=== PATIENT | female | born 1980 | race Caucasian/White ===

== ENCOUNTER → 2017-10-16 | Outpatient (CLI) | payer OTHER ==
--- NOTE | 2017-10-16 16:28 | US ---
EXAMINATION TYPE: US pelvic complete DATE OF EXAM: 10/16/2017 COMPARISON: NONE CLINICAL HISTORY: N93.8 Dysfunctional Uterine Bleed,R10.2 Pelvic Pain. Patient stated has heavy mense s x 1 year; TECHNIQUE: Transabdominal (TA) only as patient unable to void at all with overly distended bladder. Date of LMP: 10/02/2017 EXAM MEASUREMENTS: Uterus: 7.9 x 5.1 x 3.9 cm Endometrial Stripe: 0.8 cm Right Ovary: 3.3 x 2.4 x 2.8 cm Left Ovary: 2.2 x 2.2 x 1.8 cm Urinary bladder is sonolucent. Posterior wall is normal. 1. Uterus: Anteverted 2. Endometrium: thickness wnl for Day 15 LMP 3. Right Ovary: small follicles with largest = 1.1 x 1.1 x 1.0cm 4. Left Ovary: small follicles Color flow is seen in bilateral ovary at periphery 5. Bilateral Adnexa: wnl 6. Posterior cul-de-sac: wnl IMPRESSION: 1. Small 1 cm cyst right ovary. 2. Pelvic ultrasound is otherwise unremarkable.
== END | disposition home or self-care (01) ==
LOC: RADUSWWP 15:33
PROVIDERS: ATTEND Obstetrics & Gynecology
DX: N83.201 Unspecified ovarian cyst, right side (principal)
CPT/HCPCS: 36415; 76856; 83001; 83002; 84146; 84443

== ENCOUNTER → 2017-11-27 | Outpatient (CLI) | payer OTHER | END | disposition home or self-care (01) | LOC: LABWHC1 12:42 | PROVIDERS: ATTEND Obstetrics & Gynecology | DX: N93.8 Other specified abnormal uterine and vaginal bleeding (principal) | CPT/HCPCS: 36415; 83001; 83002; 84146; 84443 ==

== ENCOUNTER 2017-12-06 06:14 | Day surgery (SDC) | payer OTHER ==
[2017-11-29 15:22] VITALS: BMI 37.4
--- NOTE | 2017-12-05 15:39 | P.HPOB ---
History of Present Illness H&P Date: 12/05/17 Chief Complaint: Menorrhagia and family planning Janice is a 37-year-old female who has very heavy vaginal bleeding with each cycle despite being on control pills. She was interested in an ablation procedure to try and alleviate her symptoms. Risks and benefits were discussed the patient in detail including but not limited to damage to bladder, nerves, vessels, injuries from thermal damage from the ablation as well as pain issues. We are scheduling her for a left scopic tubal occlusion at the same time for family planning as NovaSure is not a form of control. We did previously discuss alternatives including IUDs and changing control but she is not interested in those at this time and would prefer to move forward with more definitive treatment. Past Medical History Past Medical History: No Reported History Additional Past Medical History / Comment(s): Menorrhagia History of Any Multi-Drug Resistant Organisms: None Reported Past Surgical History: Orthopedic Surgery Additional Past Surgical History / Comment(s): ostiotomy bilateral legs, scopes on knees, removal of right clavical, removal of cyst right wrist Past Anesthesia/Blood Transfusion Reactions: No Reported Reaction Smoking Status: Never smoker - Past Family History Father Family Medical History: Hypertension Medications and Allergies Home Medications Medication Instructions Recorded Confirmed Type Ibuprofen [Motrin] 600 mg PO Q6HR PRN #30 tab 03/19/15 11/29/17 Rx Venlafaxine HCl [Effexor] 50 mg PO DAILY 11/29/17 11/29/17 History traMADol HCl [Ultram] 50 mg PO Q6HR PRN 11/29/17 11/29/17 History Allergies Allergy/AdvReac Type Severity Reaction Status Date / Time Sulfa (Sulfonamide Allergy Unknown Verified 11/29/17 15:12 Antibiotics) Childhood Exam Osteopathic Statement: *. No significant issues noted on an osteopathic structural exam other than those noted in the History and Physical/Consult. - OBG Physical Exam Breast: both: normal (no masses) Abdomen: bowel sounds normal, no diffuse tenderness, no bruit present, no guarding noted, no hepatomegaly, no splenomegaly, no mass Vulva: both: normal Vagina: normal moisture, no discharge Cervix: no lesion, no discharge Uterus: normal size, normal contour Adnexa: both: normal Anus/Rectum: normal perianal skin, no rectal mass, no hemorrhoids, heme negative
[~2017-12-06 06:14] MED LIST: DEXAMETHASONE SOD PHOSPHATE 10 MG/ML 1 ML VIAL IV ONE; LACTATED RINGERS 1,000 ML IV SCH; MIDAZOLAM 2 MG/2 ML VIAL IV PRN; ONDANSETRON 4 MG/2 ML VIAL IVP ONE; Pre Op ABX Message 1 EACH MISC MISCELLANE ONE
[2017-12-06] MEDS ORDERED: LIDOCAINE 1% 20 ML VIAL (10MG/ML) FOR IV START INTRADERMA ONE (06:42)
[2017-12-06 06:57] LABS: HCT 43.3 % (34.0-46.0); HGB 14.7 gm/dL (11.4-16.0); MCH 30.1 pg (25.0-35.0); MCV 88.3 fL (80.0-100.0); Mean Platelet Volume 7.8; Platelet Count 243 k/uL (150-450); RDW 13.6 % (11.5-15.5); WBC 8.2 k/uL (3.8-10.6)
[2017-12-06] MEDS ORDERED: BUPIVACAINE (PF) 0.5% 30 ML VIAL SQ ONE ×2 (07:34→08:05)
[2017-12-06] MEDS ORDERED: LIDOCAINE 1% INJ 10MG/ML (20 ML MDV) ONE (07:45)
[2017-12-06] MEDS ORDERED: PROPOFOL 10 MG/ML 20 ML VIAL IV ONE (07:45)
[2017-12-06] MEDS ORDERED: KETOROLAC 30 MG/ML 1 ML VIAL ONE (07:45)
[2017-12-06] MEDS ORDERED: NEOSTIGMINE 1 MG/ML 10 ML VIAL ONE (07:45)
[2017-12-06] MEDS ORDERED: fentaNYL (PF) 50 MCG/ML 2 ML AMP ONE (07:45)
[2017-12-06] MEDS ORDERED: MIDAZOLAM 2 MG/2 ML VIAL ONE (07:45)
[2017-12-06] MEDS ORDERED: ROCURONIUM BROMIDE 10 MG/ML 10 ML VIAL IV ONE (07:45)
[2017-12-06] MEDS ORDERED: GLYCOPYRROLATE 0.2 MG/ML 2 ML VIAL ONE (07:45)
[2017-12-06] MEDS ORDERED: SUCCINYLCHOLINE CHLORIDE 100 MG/5 ML SYR IV ONE (07:45)
--- NOTE | 2017-12-06 08:32 | P.OP ---
Date of Procedure: 12/06/17 Preoperative Diagnosis: Menorrhagia and family planning Postoperative Diagnosis: Same Procedure(s) Performed: Laparoscopic tubal occlusion with Filshie clips and D&C with hysteroscopy and NovaSure Anesthesia: DAISHA Surgeon: Lee Castle Estimated Blood Loss (ml): 10 Urine output (ml): 100 Pathology: other (Uterine curettings) Condition: stable Disposition: same day Operative Findings: Normal pelvic anatomy Description of Procedure: Patient was taken to the operative suite where a general anesthetic was found be adequate. She was prepped and draped in normal sterile fashion and placed in dorsal lithotomy position. Initially a speculum was inserted into the vagina and the anterior lip of the cervix identified and grasped with an Allis clamp. Cervix was then dilated and sounded to 10 cm. Once this was accomplished manipulator was inserted without difficulty and red rubber catheter drain the bladder of urine. Incidents were then removed from the vagina and closer changed. Attention was then turned to the abdominal portion of the procedure where 3 mL of quarter percent Marcaine was injected periumbilically. Through this injected anesthetic a 5 mm skin incision was made and through this incision under direct visualization with an optical trocar and sleeve the camera was inserted. Once peritoneal placement was assured gas allowed to fully insufflate the abdomen and patient was then placed in steep Trendelenburg position. A second 8 mm skin incision was then made 3 cm above the pubic symphysis in the midline and 8 mm port and sleeve were inserted again under direct visualization through this opening. Observations pelvis were then noted uterus was elevated first the right fallopian tube than left fallopian tube was occluded with Filshie clips 2 cm from uterine cornu. No bleeding is noted from the mesosalpinx therefore instruments were removed and gas was allowed to expel from the abdomen. 5 deep breaths were provided during this process. 4-0 Vicryl was then used to close incision subcuticularly and the remaining 7 mL of quarter percent Marcaine was injected around the incisions. Once this was accomplished attention was again turned to the vagina where the speculum was replaced and manipulator was removed. Hysteroscopy was then done following grasping of the cervix with a single-tooth tenaculum. Proliferative endometrium was noted. Camera was then removed and sharp curettings of the endometrium were obtained and placed on Telfa paper. This tissue was sent to pathology for evaluation. Once concluded NovaSure system was brought in with a length of 5 and a width of 2.5 it was tested and once it passes patency test it was enabled and then did burned for 70 seconds. At conclusion of the burn instruments and NovaSure removed camera was reinserted with good burn noted. Therefore all instruments are removed sponge, lap, needle counts were all correct 2. Patient was then taken to the recovery room in stable and satisfactory condition. Plan - Discharge Summary New Discharge Prescriptions: New HYDROcodone/APAP 5-325MG [[place] 5-325] 1 tab PO Q4HR PRN 3 Days #18 tab PRN Reason: Pain Ibuprofen [Motrin] 600 mg PO Q6HR PRN #30 tab PRN Reason: Pain No Action Ibuprofen [Motrin] 600 mg PO Q6HR PRN #30 tab PRN Reason: Pain traMADol HCl [Ultram] 50 mg PO Q6HR PRN PRN Reason: Pain Venlafaxine HCl [Effexor] 50 mg PO DAILY Discharge Medication List Ibuprofen [Motrin] 600 mg PO Q6HR PRN #30 tab 03/19/15 [Rx] Venlafaxine HCl [Effexor] 50 mg PO DAILY 11/29/17 [History] traMADol HCl [Ultram] 50 mg PO Q6HR PRN 11/29/17 [History] HYDROcodone/APAP 5-325MG [[place] 5-325] 1 tab PO Q4HR PRN 3 Days #18 tab [Rx] Ibuprofen [Motrin] 600 mg PO Q6HR PRN #30 tab 12/06/17 [Rx] Follow up Appointment(s)/Referral(s): Lee Castle DO [Doctor of Osteopathic Medicine] - 2 Weeks Activity/Diet/Wound Care/Special Instructions: No heavy lifting today, limit stairs and driving and pelvic rest. If any high temperatures, heavy bleeding, or severe pain call my office
[2017-12-06] MEDS: fentaNYL (PF) 50 MCG/ML 2 ML AMP IVP ONE ×2 (08:44→08:51)
[2017-12-06 08:51] VITALS: TEMP 97.4
[2017-12-06] MEDS: HYDROmorphone 0.5 MG/0.5 ML SYRINGE IVP PRN ×2 (09:07→09:21)
[2017-12-06 09:38] VITALS: RESP 16
[2017-12-06] MEDS ORDERED: HYDROcodone/APAP 5-325MG 1 EACH TAB PO ONE (09:57)
[2017-12-06 10:58] VITALS: BP 113/76; PULSE 63
== END 2017-12-06 11:31 | disposition home or self-care (01) ==
LOC: OR 06:14
PROVIDERS: ATTEND Obstetrics & Gynecology
DX: Z30.2 Encounter for sterilization (principal); N92.0 Excessive and frequent menstruation with regular cycle; F32.9 Major depressive disorder, single episode, unspecified; Z88.2 Allergy status to sulfonamides; Z79.899 Other long term (current) drug therapy; Z82.49 Family history of ischemic heart disease and other diseases of the circulatory system
CPT/HCPCS: 81025; 88305; 85027; 58670; 58558; J2001; J2250; J2710; J3010; J1885; J0330; J2704; J1170

== ENCOUNTER → 2019-12-18 | Outpatient (CLI) | payer OTHER ==
--- NOTE | 2019-12-18 15:13 | US ---
EXAMINATION TYPE: US pelvic complete DATE OF EXAM: 12/18/2019 COMPARISON: US 2018 CLINICAL HISTORY: R10.2 pelvic pain. Irregular cycles, heavy periods, intermittent pelvic cramping, g ravida 4, para 3, ectopic 1, history of tubal ligation and uterine ablation. TECHNIQUE: Transabdominal sonographic images of the pelvis were acquired. Date of LMP: 09/18/2019 EXAM MEASUREMENTS: Uterus: 9.3 x 4.7 x 5.6 cm Endometrial Stripe: 0.7 cm Right Ovary: 2.6 x 1.8 x 2.7 cm Left Ovary: 3.0 x 2.0 x 2.7 cm 1. Uterus: anteverted 2. Endometrium: appears wnl 3. Right Ovary: wnl 4. Left Ovary: wnl 5. Bilateral Adnexa: wnl 6. Posterior cul-de-sac: wnl IMPRESSION: Unremarkable pelvic ultrasound. Endometrial thickness is within normal limits measuring 0 .7 cm.
== END | disposition home or self-care (01) ==
LOC: MERGE 13:40 → RADUSWWP 14:38
PROVIDERS: ATTEND Obstetrics & Gynecology
DX: R10.2 Pelvic and perineal pain (principal)
CPT/HCPCS: 76856

== ENCOUNTER → 2020-01-27 | Outpatient (CLI) | payer OTHER ==
[2020-01-27 10:54] LABS: Basophils # (A) 0.1 k/uL (0-0.2); Basophils % (A) 1 %; Eosinophils # (A) 0.1 k/uL (0-0.7); Eosinophils % (A) 2 %; HCT 47.8 % (34.0-46.0); HGB 15.4 gm/dL (11.4-16.0); Lymphocytes # (A) 1.9 k/uL (1.0-4.8); Lymphocytes % (A) 26 %; MCH 30.2 pg (25.0-35.0); MCHC 32.3 g/dL (31.0-37.0); MCV 93.5 fL (80.0-100.0); Mean Platelet Volume 9.1; Monocytes # (A) 0.3 k/uL (0-1.0); Monocytes % (A) 5 %; Neutrophils # (A) 4.7 k/uL (1.3-7.7); Neutrophils % (A) 64 %; Platelet Count 275 k/uL (150-450); RBC 5.11 m/uL (3.80-5.40); RDW 13.3 % (11.5-15.5); WBC 7.4 k/uL (3.8-10.6)
[2020-01-27 11:00] LABS: African American GFR (CKD) >90 (>60 ml/min/1.73 sqM); Anion Gap 8 mmol/L; Blood Urea Nitrogen 12 mg/dL (7-17); Calcium 9.8 mg/dL (8.4-10.2); Carbon Dioxide 21 mmol/L (22-30); Chloride 108 mmol/L (98-107); Glucose 96 mg/dL (74-99); Non-African American GFR(CKD) >90 (>60 ml/min/1.73 sqM); Potassium 4.8 mmol/L (3.5-5.1); Sodium 137 mmol/L (137-145)
== END | disposition home or self-care (01) ==
LOC: LABPAT 10:12
PROVIDERS: ATTEND Obstetrics & Gynecology
DX: Z01.818 Encounter for other preprocedural examination (principal)
CPT/HCPCS: 36415; 80048; 85025

== ENCOUNTER 2020-02-05 08:02 | Day surgery (SDC) | payer OTHER ==
[2020-01-30 15:55] VITALS: BMI 38.9
--- NOTE | 2020-02-04 16:41 | P.HPOB ---
History of Present Illness H&P Date: 02/04/20 Chief Complaint: Dysfunctional uterine bleeding: Failed NovaSure Janice is a 40-year-old female who has had very heavy menses lasting for 3 days each cycle. She also has severe pain and cramping with her cycles as well. She does have some hot flashes as a incidental notation. She is scheduled for a robotic-assisted laparoscopic hysterectomy with bilateral salpingectomy possible PHAM and possible BSO. Risks/benefits/alternatives were reviewed with patient in detail all questions were answered for her prior to proceeding to the operative room. Risks did include but were not limited to bleeding and infection, damage to bladder, bowel, vascular degrees, nerve injuries, ureteral injuries possible anesthetic issues. Surgical procedure were reviewed with the patient in detail and she understands what is entailed and all questions are answered for her prior to proceeding to the operative room. Past Medical History Past Medical History: Asthma, Osteoarthritis (OA) Additional Past Medical History / Comment(s): Stress Induced Asthma. History of Any Multi-Drug Resistant Organisms: None Reported Past Surgical History: Orthopedic Surgery, Tubal Ligation Additional Past Surgical History / Comment(s): Ostiotomy bilateral legs, bilateral knee scopes, removal of right clavical, removal of right wrist cyst, Novasure. Past Anesthesia/Blood Transfusion Reactions: No Reported Reaction Past Psychological History: No Psychological Hx Reported Smoking Status: Never smoker Past Alcohol Use History: Rare Past Drug Use History: None Reported - Past Family History Father Family Medical History: Hypertension Medications and Allergies Home Medications Medication Instructions Recorded Confirmed Type Acetaminophen [Tylenol Extra 1,000 mg PO Q4-6H PRN 01/30/20 01/30/20 History Strength] Budesonide/Formoterol Fumarate 1 puff INHALATION DIRECTED PRN 01/30/20 01/30/20 History [Symbicort 80-4.5 Mcg Inhaler] Ibuprofen [Motrin] 800 mg PO DAILY PRN 01/30/20 01/30/20 History Allergies Allergy/AdvReac Type Severity Reaction Status Date / Time Sulfa (Sulfonamide Allergy Unknown Verified 01/30/20 15:56 Antibiotics) Childhood Exam Osteopathic Statement: *. No significant issues noted on an osteopathic s tructural exam other than those noted in the History and Physical/Consult. - OBG Physical Exam Breast: both: normal (no masses) Abdomen: Obese Abdomen: bowel sounds normal, no diffuse tenderness, no bruit present, no guarding noted, no hepatomegaly, no splenomegaly, no mass Vulva: both: normal Vagina: normal moisture, no discharge Cervix: no lesion, no discharge Uterus: normal size, normal contour Adnexa: both: normal Anus/Rectum: normal perianal skin, no rectal mass, no hemorrhoids, heme negative
[~2020-02-05 08:02] MED LIST changes: -DEXAMETHASONE SOD PHOSPHATE 10 MG/ML 1 ML VIAL IV ONE; -MIDAZOLAM 2 MG/2 ML VIAL IV PRN
[2020-02-05] MEDS ORDERED: ONDANSETRON 4 MG/2 ML VIAL ONE (08:33)
[2020-02-05] MEDS ORDERED: DEXAMETHASONE SOD PHOSPHATE 10 MG/ML 1 ML VIAL IV ONE (08:45)
[2020-02-05] MEDS ORDERED: LIDOCAINE 1% (10MG/ML) FOR IV START INTRADERMA ONE (08:45)
[2020-02-05] MEDS ORDERED: MIDAZOLAM 2 MG/2 ML VIAL IV ONE (09:20)
[2020-02-05] MEDS ORDERED: GLYCOPYRROLATE 0.2 MG/ML 2 ML VIAL ONE (09:31)
[2020-02-05] MEDS ORDERED: LIDOCAINE 1% INJ 10MG/ML (20 ML MDV) ONE (09:31)
[2020-02-05] MEDS ORDERED: NEOSTIGMINE 1 MG/ML 10 ML VIAL ONE (09:31)
[2020-02-05] MEDS ORDERED: ROCURONIUM BROMIDE 10 MG/ML 5 ML VIAL IV ONE (09:31)
[2020-02-05] MEDS ORDERED: HYDROmorphone (PF) 1 MG/ML ONE (09:31)
[2020-02-05] MEDS ORDERED: SUCCINYLCHOLINE CHLORIDE 100 MG/5 ML SYR IV ONE (09:31)
[2020-02-05] MEDS ORDERED: fentaNYL (PF) 50 MCG/ML 2 ML AMP ONE (09:31)
[2020-02-05] MEDS ORDERED: MIDAZOLAM 2 MG/2 ML VIAL ONE (09:31)
[2020-02-05] MEDS ORDERED: PROPOFOL 10 MG/ML 20 ML VIAL IV ONE (09:31)
[2020-02-05] MEDS ORDERED: ceFAZolin 1,000 MG VIAL IVPB ONE (09:39)
[2020-02-05] MEDS ORDERED: BUPIVACAINE (PF) 0.25% 30 ML VIAL SQ ONE ×2 (09:57)
[2020-02-05] MEDS ORDERED: ONDANSETRON 4 MG/2 ML VIAL IVP PRN (10:49)
[2020-02-05] MEDS ORDERED: KETOROLAC 30 MG/ML 1 ML VIAL IVP PRN (10:49)
[2020-02-05] MEDS ORDERED: SIMETHICONE 80 MG CHEWABLE PO PRN (10:49)
[2020-02-05] MEDS ORDERED: SYMBICORT 80-4.5 MCG INHALER INHALATION PRN (10:50)
--- NOTE | 2020-02-05 10:55 | P.OP ---
Date of Procedure: 02/05/20 Preoperative Diagnosis: Dysfunctional uterine bleeding failed NovaSure Postoperative Diagnosis: Same Procedure(s) Performed: Robotic-assisted laparoscopic hysterectomy with bilateral salpingectomy Anesthesia: DAISHA Surgeon: Lee Castle [employer] Stripper Etcher #1: Christa Marrufo Estimated Blood Loss (ml): 30 IV fluids (ml): 800 Urine output (ml): 100 Pathology: other (Uterus, cervix and fallopian tubes) Condition: stable Disposition: floor Operative Findings: Tissue pathology pending Description of Procedure: Janice was taken to the operating suite where general anesthetic was found be adequate. She was prepped and draped in the normal sterile fashion placed in dorsal lithotomy position. Initially a weighted speculum was inserted into the vagina and the anterior lip surface identified grasped with single-tooth tenaculum. It was then sounded to 9 cm and cup sizes measured to 3 cm. Cervix was then dilated and a Alis manipulator was inserted without difficulty. Other incidents were then removed with sutures placed at 3 and 9 to help in removal. Ferro catheter was then placed closer changed. Attention was then turned to abdominal portion procedure where 2 mL of quarter percent Marcaine was injected around the periumbilical area and an 8 mm skin incision was made. Through this incision under direct visualization with an optical trocar and sleeve the camera was inserted. Once peritoneal placement was assured gas was left fully insufflate the abdomen and patient was placed in steep Trendelenburg position of approximately 25. Once this was accomplished 2 lateral ports were placed 10-12 cm lateral to the umbilicus through these incisions 8 mm da Alyssa ports were placed. Fourth port and sleeve was inserted through a 1 cm incision between the left lateral and medial port. Camera port was exchanged for a robotic port and the robot was brought in and docked. Once fully docked scissor was placed in the 3 arm and a [place] grasper in the one arm. At this point broke scrub and went to the console. Observations [place] noted. Uterus was then elevated and tipped to the right side and the left fallopian tube was undermined cauterized and removed. Once this was accomplished utero-ovarian ligament was identified cauterized and transected and the mesosalpinx tissues cauterized and transected the round ligament. Round ligament was then transferred cauterized and transected and anterior and posterior leafs broad ligament were developed. Vascular was then cauterized and the bladder flap identified. At the level of the cardinal ligament bladder flap was elevated incised with scissor and carried across face the uterus while undermining with [place] and incised with the scissors. Bladder was then bluntly dissected out of the operative field. Once this was accomplished attention was turned to the right side of the uterus and in a similar fashion this side was developed. Cauterization of the uterine vascularity was then verified. Cup was blown up in the Alis manipulator and anterior colpotomy was made. Cup was then followed as 360 fashion in a counterclockwise fashion maintaining hemostasis by cheating head when necessary. Once 3 and 60 was accomplished uterus was brought down into the vagina to maintain pneumoperitoneum. No bleeding is noted from any of the pedicles therefore incidents were exchanged for a make suture cut and a cardia grasper and using to OB lock suture the vaginal cuff was closed. Once this was, as pelvis was irrigated no bleeding is noted from any of the pedicles hemostasis appears intact and therefore Allis was removed and gas was allowed to expel from the abdomen. 5 deep breaths were provided during this process. Dr. Marrufo close incisions was 4-0 Vicryl subcuticular E I did do a diagnostic cystoscopy with excellent flow noted from both ureteral jets. The remaining Marcaine was then injected around the incisions. Sponge, lap, needle counts were all correct 2. Patient was then taken to the recovery room in stable and satisfactory condition.
[2020-02-05] MEDS ORDERED: KETOROLAC 30 MG/ML 1 ML VIAL IVP ONE (11:05)
[2020-02-05] MEDS ORDERED: diphenhydrAMINE 50 MG/ML 1 ML VIAL IVP ONE (11:07)
[2020-02-05] MEDS: fentaNYL (PF) 50 MCG/ML 2 ML AMP IV PRN ×3 (11:25→11:57)
[2020-02-05] MEDS: HYDROcodone/APAP 7.5-325MG 1 EACH TAB PO PRN ×2 (14:31→20:21)
[2020-02-05] MEDS: SENNOSIDES-DOCUSATE SODIUM 1 EACH TAB PO SCH (23:36)
[2020-02-05 23:37] VITALS: RESP 16
[2020-02-06] MEDS: HYDROcodone/APAP 7.5-325MG 1 EACH TAB PO PRN ×2 (03:01→08:57)
[2020-02-06 07:53] LABS: Basophils % (A) 0 %; Eosinophils % (A) 0 %; HGB 13.1 gm/dL (11.4-16.0); Lymphocytes # (A) 2.2 k/uL (1.0-4.8); Lymphocytes % (A) 19 %; MCH 29.9 pg (25.0-35.0); MCHC 31.9 g/dL (31.0-37.0); MCV 93.9 fL (80.0-100.0); Mean Platelet Volume 9.1; Monocytes # (A) 0.6 k/uL (0-1.0); Monocytes % (A) 5 %; Neutrophils # (A) 8.4 k/uL (1.3-7.7); Neutrophils % (A) 74 %; Platelet Count 216 k/uL (150-450); RBC 4.36 m/uL (3.80-5.40); RDW 13.2 % (11.5-15.5); WBC 11.4 k/uL (3.8-10.6)
[2020-02-06] MEDS: SENNOSIDES-DOCUSATE SODIUM 1 EACH TAB PO SCH (08:56)
[2020-02-06 09:19] VITALS: BP 127/85; PULSE 77; TEMP 97.7
== END 2020-02-06 10:40 | disposition home or self-care (01) ==
LOC: OR 08:02 → 4FBP 11:21 → OR 02-06 10:40
PROVIDERS: ATTEND Obstetrics & Gynecology
DX: N72 Inflammatory disease of cervix uteri (principal); N80.0 Endometriosis of uterus; D25.9 Leiomyoma of uterus, unspecified; J45.909 Unspecified asthma, uncomplicated; M19.90 Unspecified osteoarthritis, unspecified site; Z98.51 Tubal ligation status; Z98.890 Other specified postprocedural states; Z82.49 Family history of ischemic heart disease and other diseases of the circulatory system; Z79.51 Long term (current) use of inhaled steroids; Z79.899 Other long term (current) drug therapy; Z88.2 Allergy status to sulfonamides
CPT/HCPCS: 58571; S2900; 81025; 85025; 86850; 86900; 86901; 88307

== ENCOUNTER 2020-02-16 11:53 | Observation (INO) | payer OTHER ==
[2020-02-16] MEDS ORDERED: SODIUM CHLORIDE 0.9% 1,000 ML IV STA (12:17)
--- NOTE | 2020-02-16 12:25 | ED ---
Female Urogenital HPI - General Chief complaint: Vaginal Bleeding Stated complaint: Vaginal Bleeding Time Seen by Provider: 02/16/20 12:11 Source: patient, EMS, RN notes reviewed, old records reviewed Mode of arrival: EMS Limitations: no limitations - History of Present Illness Initial comments: This is a 32-year-old female DF for evaluation today. She presents today for evaluation regards to significant vaginal bleeding starting while at work this m orning. Patient had hysterectomy on the and had normal follow-up appointment at a week. No pain or bleeding started heavily today maybe some feelings of lightheadedness but she does feel shaky and thinks it may be more anxiety secondary to significance of the bleeding. She did not feel any d ifferent symptoms besides what is noting the significant amount of blood. Patient robotic hysterectomy and they did take the uterus through her vaginal canal. Patient denies any sexual activity. MD Complaint: vaginal bleeding, other (No pain) -: hour(s) Location: perineum Radiation: non-radiating Severity: severe Severity scale (1-10): 10 Quality: other (No pain) Consistency: constant Improves with: none Worsens with: none Patient : No Associated Symptoms: vaginal bleeding, weakness - Related Data Sexually active: No (Not currently) Home Medications Medication Instructions Recorded Confirmed Acetaminophen [Tylenol Extra 1,000 mg PO Q4-6H PRN 01/30/20 02/05/20 Strength] Budesonide/Formoterol Fumarate 1 puff INHALATION DIRECTED PRN 01/30/20 02/05/20 [Symbicort 80-4.5 Mcg Inhaler] Ibuprofen [Motrin] 800 mg PO DAILY PRN 01/30/20 02/05/20 Previous Rx's Medication Instructions Recorded HYDROcodone/APAP 5-325MG [[place] 1 tab PO Q4HR PRN #30 tab 02/06/20 5-325] Ibuprofen [Motrin] 600 mg PO Q6HR PRN #30 tab 02/06/20 Allergies Allergy/AdvReac Type Severity Reaction Status Date / Time Sulfa (Sulfonamide Allergy Unknown Verified 02/05/20 08:17 Antibiotics) Childhood Review of Systems ROS Statement: Those systems with pertinent positive or pertinent negative responses have been documented in the HPI. ROS Other: All systems not noted in ROS Statement are negative. Past Medical History Past Medical History: No Reported History History of Any Multi-Drug Resistant Organisms: None Reported Past Surgical History: Hysterectomy Additional Past Surgical History / Comment(s): ostiotomy bilateral legs, scopes on knees, removal or right clavical, removal of cyst right wrist, hysterectomy with tubes removed 02/05/20 Past Anesthesia/Blood Transfusion Reactions: No Reported Reaction Past Psychological History: No Psychological Hx Reported Smoking Status: Never smoker Past Alcohol Use History: None Reported Past Drug Use History: None Reported - Past Family History Father Family Medical History: Hypertension General Exam Limitations: no limitations General appearance: alert, in no apparent distress, anxious Head exam: Present: atraumatic, normocephalic, normal inspection Eye exam: Present: normal appearance, PERRL, EOMI. Absent: scleral icterus, conjunctival injection, periorbital swelling ENT exam: Present: normal exam, mucous membranes moist Neck exam: Present: normal inspection. Absent: tenderness, meningismus, lymphadenopathy Respiratory exam: Present: normal lung sounds bilaterally. Absent: respiratory distress, wheezes, rales, rhonchi, stridor Cardiovascular Exam: Present: regular rate, normal rhythm, normal heart sounds. Absent: systolic murmur, diastolic murmur, rubs, gallop, clicks GI/Abdominal exam: Present: soft, normal bowel sounds. Absent: distended, tenderness, guarding, rebound, rigid Extremities exam: Present: normal inspection, full ROM, normal capillary refill. Absent: tenderness, pedal edema, joint swelling, calf tenderness Back exam: Present: normal inspection Neurological exam: Present: alert, oriented X3, CN II-XII intact Psychiatric exam: Present: normal affect, normal mood Skin exam: Present: warm, dry, intact, normal color. Absent: rash Course Vital Signs 02/16/20 02/16/20 11:59 12:31 Temperature 98.7 F Pulse Rate 76 103 H Respiratory 18 18 Rate Blood Pressure 148/99 134/91 O2 Sat by Pulse 100 100 Oximetry - Reevaluation(s) Reevaluation #1: 02/16/20 12:25 Medical record is reviewed Reevaluation #2: 02/16/20 12:55 Patient continues to have significant bleeding - Consultations Consultation #1: Spoke with Dr. Bo Soriano did come evaluate patient in the emergency room for Dr. Castle, patient will be going to the operating room Medical Decision Making - Medical Decision Making 40 female DF for evaluation with significant postoperative bleeding. Patient be admitted to the operating room for reevaluation regarding postop bleeding - Lab Data Result diagrams: 02/16/20 12:10 Lab Results 02/16/20 Range/Units 12:10 WBC 12.9 H (3.8-10.6) k/uL RBC 4.55 (3.80-5.40) m/uL Hgb 13.8 (11.4-16.0) gm/dL Hct 42.0 (34.0-46.0) % MCV 92.4 (80.0-100.0) fL MCH 30.3 (25.0-35.0) pg MCHC 32.8 (31.0-37.0) g/dL RDW 13.2 (11.5-15.5) % Plt Count 244 (150-450) k/uL Neutrophils % 79 % Lymphocytes % 14 % Monocytes % 4 % Eosinophils % 1 % Basophils % 1 % Neutrophils # 10.2 H (1.3-7.7) k/uL Lymphocytes # 1.8 (1.0-4.8) k/uL Monocytes # 0.5 (0-1.0) k/uL Eosinophils # 0.1 (0-0.7) k/uL Basophils # 0.1 (0-0.2) k/uL Disposition Clinical Impression: Vaginal bleeding Disposition: ADMITTED IP TO THIS HOSP Condition: Serious Is patient prescribed a controlled substance at d/c from ED?: No Referrals: Roxana Sarah MD [Primary Care Provider] - 1-2 days
[2020-02-16 12:48] LABS: Basophils # (A) 0.1 k/uL (0-0.2); Basophils % (A) 1 %; Eosinophils # (A) 0.1 k/uL (0-0.7); Eosinophils % (A) 1 %; HGB 13.8 gm/dL (11.4-16.0); Lymphocytes # (A) 1.8 k/uL (1.0-4.8); Lymphocytes % (A) 14 %; MCH 30.3 pg (25.0-35.0); MCHC 32.8 g/dL (31.0-37.0); MCV 92.4 fL (80.0-100.0); Mean Platelet Volume 9.2; Monocytes # (A) 0.5 k/uL (0-1.0); Monocytes % (A) 4 %; Neutrophils # (A) 10.2 k/uL (1.3-7.7); Neutrophils % (A) 79 %; Platelet Count 244 k/uL (150-450); RBC 4.55 m/uL (3.80-5.40); RDW 13.2 % (11.5-15.5); WBC 12.9 k/uL (3.8-10.6)
[2020-02-16 13:01] LABS: ALT 17 U/L (4-34); AST 27 U/L (14-36); African American GFR (CKD) >90 (>60 ml/min/1.73 sqM); Albumin 3.9 g/dL (3.5-5.0); Alkaline Phosphatase 83 U/L (38-126); Anion Gap 7 mmol/L; Blood Urea Nitrogen 13 mg/dL (7-17); Calcium 8.9 mg/dL (8.4-10.2); Carbon Dioxide 18 mmol/L (22-30); Chloride 110 mmol/L (98-107); Glucose 106 mg/dL (74-99); Magnesium 1.9 mg/dL (1.6-2.3); Non-African American GFR(CKD) >90 (>60 ml/min/1.73 sqM); Potassium 4.5 mmol/L (3.5-5.1); Sodium 135 mmol/L (137-145); Total Bilirubin 0.5 mg/dL (0.2-1.3); Total Protein 6.8 g/dL (6.3-8.2)
[2020-02-16] MEDS ORDERED: ONDANSETRON 4 MG/2 ML VIAL IVP STA (13:05)
--- NOTE | 2020-02-16 13:09 | P.HPOB ---
History of Present Illness H&P Date: 02/16/20 Chief Complaint: vaginal bleeding this patient is a pleasant 40-year-old 4 para 3 female who is status post laparoscopic vaginal hysterectomy on February 04. Patient states that she went to work this morning and began bleeding profusely from the vagina bright red. Patient denies any significant bleeding immediately after the surgery. I did discuss with her primary physician Dr. Castle and there were no complications at the time of surgery as well. Patient was transported by EMS from [facility] and the EMS estimated in transit blood loss at approximately 700 mL. Review of Systems Menstruation: Reports as per HPI, Reports post hysterectomy Past Medical History Past Medical History: No Reported History History of Any Multi-Drug Resistant Organisms: None Reported Past Surgical History: Hysterectomy Additional Past Surgical History / Comment(s): ostiotomy bilateral legs, scopes on knees, removal or right clavical, removal of cyst right wrist, hysterectomy with tubes removed 02/05/20 Past Anesthesia/Blood Transfusion Reactions: No Reported Reaction Past Psychological History: No Psychological Hx Reported Smoking Status: Never smoker Past Alcohol Use History: None Reported Past Drug Use History: None Reported - Past Family History Father Family Medical History: Hypertension Medications and Allergies Home Medications Medication Instructions Recorded Confirmed Type Acetaminophen [Tylenol Extra 1,000 mg PO Q4-6H PRN 01/30/20 02/05/20 History Strength] Budesonide/Formoterol Fumarate 1 puff INHALATION DIRECTED PRN 01/30/20 02/05/20 History [Symbicort 80-4.5 Mcg Inhaler] Ibuprofen [Motrin] 800 mg PO DAILY PRN 01/30/20 02/05/20 History HYDROcodone/APAP 5-325MG [[place] 1 tab PO Q4HR PRN #30 tab 02/06/20 Rx 5-325] Ibuprofen [Motrin] 600 mg PO Q6HR PRN #30 tab 02/06/20 Rx Allergies Allergy/AdvReac Type Severity Reaction Status Date / Time Sulfa (Sulfonamide Allergy Unknown Verified 02/05/20 08:17 Antibiotics) Childhood Exam Vital Signs Temp Pulse Resp BP Pulse Ox 02/16/20 12:31 103 H 18 134/91 100 02/16/20 11:59 98.7 F 76 18 148/99 100 Intake and Output 02/15/20 02/16/20 02/16/20 22:59 06:59 14:59 Other: Weight 112.491 kg exam is limited to the pelvis. Patient is lying in stretcher she has a large amount of bright red blood and there is a clot at the vaginal opening. Results Result Diagrams: 02/16/20 12:10 02/16/20 12:10 Abnormal Lab Results - Last 24 Hours (Table) 02/16/20 02/16/20 Range/Units 12:10 12:10 WBC 12.9 H (3.8-10.6) k/uL Neutrophils # 10.2 H (1.3-7.7) k/uL Sodium 135 L (137-145) mmol/L Chloride 110 H (98-107) mmol/L Carbon Dioxide 18 L (22-30) mmol/L Glucose 106 H (74-99) mg/dL Assessment and Plan Assessment: This is a pleasant 40-year-old 4 para 3 female status post laparoscopic hysterectomy approximately week and a half ago now with profuse vaginal bleeding. Patient is having significant enough bleeding that I do not feel it is possible to evaluate or treat her in the emergency department and is best to proceed to the operating room for exam under anesthesia. I explained to the patient that this most likely is from the vaginal apex therefore we will do our best to stop this bleeding the a vaginal approach however if the bleeding continues she may need to have a laparotomy or laparoscopy. Patient understands this surgery and risks: Risks of infection, bleeding, possible injury to other structures. All the patient's questions are answered written consent obtained. (1) Vaginal bleeding Current Visit: Yes Status: Acute Code(s): N93.9 - ABNORMAL UTERINE AND VAGINAL BLEEDING, UNSPECIFIED SNOMED Code(s): 031395996
[2020-02-16 13:13] LABS: INR 0.9 (<1.2); Partial Thromboplastin Time 22.9 sec (22.0-30.0); Prothrombin Time 9.5 sec (9.0-12.0)
[2020-02-16] MEDS ORDERED: PHENYLEPHRINE-0.9% NACL SYG 1 MG/10 ML SYRINGE ONE (13:26)
[2020-02-16] MEDS ORDERED: GLYCOPYRROLATE 0.2 MG/ML 2 ML VIAL ONE (13:26)
[2020-02-16] MEDS ORDERED: SUCCINYLCHOLINE CHLORIDE 100 MG/5 ML SYR IV ONE (13:26)
[2020-02-16] MEDS ORDERED: fentaNYL (PF) 50 MCG/ML 2 ML AMP ONE (13:26)
[2020-02-16] MEDS ORDERED: ROCURONIUM BROMIDE 10 MG/ML 5 ML VIAL IV ONE (13:26)
[2020-02-16] MEDS ORDERED: NEOSTIGMINE 1 MG/ML 10 ML VIAL ONE (13:26)
[2020-02-16] MEDS ORDERED: MIDAZOLAM 2 MG/2 ML VIAL ONE (13:26)
[2020-02-16] MEDS ORDERED: LIDOCAINE 1% INJ 10MG/ML (20 ML MDV) ONE (13:26)
[2020-02-16] MEDS ORDERED: PROPOFOL 10 MG/ML 20 ML VIAL IV ONE (13:26)
[2020-02-16] MEDS ORDERED: HYDROmorphone (PF) 1 MG/ML ONE (13:26)
[2020-02-16] MEDS ORDERED: IV FLUID CONTINUATION 1,000 ML IV ONE (13:26)
[2020-02-16] MEDS ORDERED: CEFAZOLIN IV ONE ×2 (13:34)
[2020-02-16] MEDS ORDERED: SODIUM CHLORIDE 0.9% IV ONE ×2 (13:34)
[2020-02-16] MEDS ORDERED: BUPIVACAINE (PF) 0.5% 30 ML VIAL SQ ONE (14:02)
[2020-02-16] MEDS ORDERED: LACTATED RINGERS 1,000 ML IV ONE (14:10)
[2020-02-16] MEDS ORDERED: BACITRACIN ZINC 500 UNIT/GM OINT 28.4 GM TUBE TOPICAL ONE (14:19)
[2020-02-16] MEDS ORDERED: SIMETHICONE 80 MG CHEWABLE PO PRN (14:21)
[2020-02-16] MEDS ORDERED: ONDANSETRON 4 MG/2 ML VIAL IVP PRN (14:21)
--- NOTE | 2020-02-16 14:27 | P.OP ---
Date of Procedure: 02/16/20 Preoperative Diagnosis: Vaginal bleeding postoperatively Postoperative Diagnosis: Same with vaginal cuff avulsion Procedure(s) Performed: Exam under anesthesia with oversew vaginal cuff and diagnostic laparoscopy Anesthesia: DAISHA Surgeon: Lee Castle Open Tenter Operator #1: Alexey Soriano Estimated Blood Loss (ml): 20 IV fluids (ml): 1,200 Urine output (ml): 100 Pathology: none sent Condition: stable Disposition: floor Operative Findings: Diagnostic laparoscopy done out of abundance of caution no active bleeding is noted in the abdomen no blood is noted in the abdomen at all. Description of Procedure: Patient was taken to the operative suite where a general anesthetic was found be adequate. She was prepped and draped in normal sterile fashion and placed in the dorsal lithotomy position. Initially a speculum was inserted into the vagina and a red rubber catheter was used to drain the bladder of urine once this was accomplished second retractor was used to we could fully visualize the vaginal cuff the right corner of the vaginal cuff appeared to be a. Heart and the remainder of the cuff looked intact due to that finding and the fact that there was a small amount of bright red bleeding coming from that area 0 Vicryl suture in a running fashion was used to reapproximate Area of the vaginal cuff. Bleeding was much better after this. Out of abundance of caution since there was no way to be certain that this wasn't coming from above a diagnostic laparoscopy was also performed gloves, gowns, and drapes were all changed and attention was turned to abdominal portion procedure where 2 mL of quarter percent Marcaine was injected. Umbilical. Through this injected anesthetic a 170 incision was made and through this incision under direct visualization with an optical trocar and sleeve the intense ohmmeter camera was inserted. Once peritoneal placement was assured gas left fully slick abdomen and patient was placed in steep Trendelenburg position. Immediately we could notice that there was no blood in the abdomen or cul-de-sac however, a second 5 mm port was placed in the left abdomen through her old incision and bowels moved and ovaries were moved out of the visual field scant amount of clear fluid was then suctioned out of the abdomen and then all incidents were removed from the abdomen and gas was allowed to expel from the abdomen. 5 deep breaths were provided during this process. 4-0 Vicryl was then used to close incision subcuticular E and half percent Marcaine was injected around the incisions help with pain. Once this was completed attention was again returned to the vagina reinspection of the vaginal cuff appeared to be stable no active bleeding was noted however, the vagina was packed with iodoform gauze with bacitracin. All incidents were then removed. Sponge, lap, needle counts were all correct 2. Patient was then taken to the recovery room in stable and satisfactory condition.
[2020-02-16] MEDS: KETOROLAC 30 MG/ML 1 ML VIAL IVP PRN ×2 (15:00→21:29)
[2020-02-16] MEDS ORDERED: HYDROmorphone 0.5 MG/0.5 ML SYRINGE IVP ONE (15:00)
[2020-02-16 17:32] LABS: Basophils % (A) 0 %; Eosinophils # (A) 0.1 k/uL (0-0.7); Eosinophils % (A) 1 %; HGB 11.7 gm/dL (11.4-16.0); Lymphocytes # (A) 1.5 k/uL (1.0-4.8); Lymphocytes % (A) 11 %; MCH 30.6 pg (25.0-35.0); MCHC 32.4 g/dL (31.0-37.0); MCV 94.2 fL (80.0-100.0); Mean Platelet Volume 9.4; Monocytes # (A) 0.4 k/uL (0-1.0); Monocytes % (A) 3 %; Neutrophils # (A) 11.5 k/uL (1.3-7.7); Neutrophils % (A) 84 %; Platelet Count 215 k/uL (150-450); RBC 3.82 m/uL (3.80-5.40); RDW 13.3 % (11.5-15.5); WBC 13.6 k/uL (3.8-10.6)
--- NOTE | 2020-02-16 17:49 | P.PN ---
Progress Note - Text Progress Note Date: 02/16/20 Patient is seen for postop follow-up. She is lying in bed without complaints. She states that she feels great without any pain. Hemoglobin repeat is 11.5 which is 2 g less than admission hemoglobin but this is more realistic of what we expected and is not indicative of ongoing bleeding. Examination of her. Patch is a scant amount of blood. Abdomen soft. Patient is tolerating liquid diet. I rediscussed surgical findings with her. Plan is to continue postoperative care, check a CBC in the morning. Very well may be able to go home tomorrow
[2020-02-16] MEDS: SENNOSIDES-DOCUSATE SODIUM 1 EACH TAB PO SCH (20:17)
[2020-02-17 04:10] VITALS: RESP 16
[2020-02-17] MEDS: KETOROLAC 30 MG/ML 1 ML VIAL IVP PRN (05:11)
[2020-02-17 07:37] LABS: Basophils % (A) 0 %; Eosinophils # (A) 0.1 k/uL (0-0.7); Eosinophils % (A) 1 %; HCT 32.1 % (34.0-46.0); HGB 10.3 gm/dL (11.4-16.0); Lymphocytes # (A) 2.3 k/uL (1.0-4.8); Lymphocytes % (A) 23 %; MCV 93.8 fL (80.0-100.0); Mean Platelet Volume 9.5; Monocytes # (A) 0.5 k/uL (0-1.0); Monocytes % (A) 5 %; Neutrophils % (A) 69 %; Platelet Count 208 k/uL (150-450); RBC 3.43 m/uL (3.80-5.40); RDW 13.3 % (11.5-15.5); WBC 10.2 k/uL (3.8-10.6)
[2020-02-17 08:37] VITALS: BP 146/83; PULSE 92; TEMP 97
--- NOTE | 2020-02-17 08:38 | P.DS ---
Providers Date of admission: 02/16/20 13:27 Expected date of discharge: 02/17/20 Attending physician: Alexey Soriano Primary care physician: Roxana Sarah [facility] Course: Janice is doing very well this morning. Her vital signs are stable and afebrile. Heart regular, lungs clear, extremities without pain. Abdomen is soft. Bowel sounds are noted. Vaginal packing is removed with blood noted no active bleeding is noted this time no bright red blood is noted on the vaginal packing. She is otherwise stable for discharge. All questions were answered for her and discharge instructions were thoroughly reviewed. She is stable again for discharge this time. Patient Condition at Discharge: Good Plan - Discharge Summary New Discharge Prescriptions: No Action Ibuprofen [Motrin] 600 mg PO Q6HR PRN #30 tab PRN Reason: Pain Venlafaxine HCl ER [Effexor Xr] 37.5 mg PO DAILY Discharge Medication List Ibuprofen [Motrin] 600 mg PO Q6HR PRN #30 tab 02/06/20 [Rx] Venlafaxine HCl ER [Effexor Xr] 37.5 mg PO DAILY 02/16/20 [History] Follow up Appointment(s)/Referral(s): Roxana Sarah MD [Primary Care Provider] - 1-2 days Lee Castle DO [Doctor of Osteopathic Medicine] - 1 Week Activity/Diet/Wound Care/Special Instructions: No heavy lifting, limit stairs and driving and complete pelvic rest. Call or return to emergency room for any heavy bleeding, severe pain or high temperatures. Discharge Disposition: HOME SELF-CARE
[2020-02-17] MEDS: SENNOSIDES-DOCUSATE SODIUM 1 EACH TAB PO SCH (08:41)
== END 2020-02-17 09:59 | disposition home or self-care (01) ==
LOC: EC 11:53 → 1SOBS 13:27
PROVIDERS: ADMIT Obstetrics & Gynecology; ATTEND Obstetrics & Gynecology
DX: N93.9 Abnormal uterine and vaginal bleeding, unspecified (principal); T14.8XXA Other injury of unspecified body region, initial encounter; Z90.710 Acquired absence of both cervix and uterus; Z90.79 Acquired absence of other genital organ(s); Z98.890 Other specified postprocedural states; Z82.49 Family history of ischemic heart disease and other diseases of the circulatory system; Z88.2 Allergy status to sulfonamides; Z79.899 Other long term (current) drug therapy
CPT/HCPCS: 99285; 36415; 86900; 86901; 80053; 83735; 85025 ×2; 85610; 85730; 86850; 86920; 49320; G0378 ×2; U0003; J2250; J2710; J2405; J0690; J2001; J3010; J1885 ×2; J1170 ×2; J2370; J0330; J2704

== ENCOUNTER → 2020-12-23 | Outpatient (CLI) | payer OTHER ==
[2020-12-23 14:26] VITALS: BP 90/65; PULSE 123; RESP 16; TEMP 98.2; BMI 46.4
--- NOTE | 2020-12-23 16:44 | P.HPBAR ---
Bariatric H&P - History & Physicial H&P Date: 12/23/20 History & Physicial: Visit/CC: initial Patient initial contact: Initial weight: 126.552 kg Initial weight in pounds: 279.00 Height: 5 ft 5 in Initial BMI: 46.4 Last weight: Current weight: 126.552 kg Current weight in pounds: 279.00 Current BMI: 46.4 [place] body weight (based on NIH guidelines): 56.699 kg Excess body weight loss: 0.0% The patient is a 40 year-old F who presents for Bariatric Assessment. 40-year-old female here today to discuss bariatric surgery. She has been suffering with her morbid obesity for many years. She has been considering will weight loss surgery for some time. Patient with BMI of 46. Medical history includes chronic joint pain and mild reflux. Past surgical history includes orthopedic procedures and hysterectomy. No tobacco use. Denies history of DVT or dysphagia. Review of Systems The patient denies any acute changes in vision or hearing, no dysphagia or odynophagia, no chest pain or shortness of breath, no dysuria or hematuria, no headache, no runny nose, no rectal bleeding or melena, no unexplained weight loss Past Medical History Past Medical History: No Reported History History of Any Multi-Drug Resistant Organisms: None Reported Past Surgical History: Hysterectomy Additional Past Surgical History / Comment(s): ostiotomy bilateral legs, scopes on knees, removal or right clavical, removal of cyst right wrist, hysterectomy with tubes removed 02/05/20 Past Anesthesia/Blood Transfusion Reactions: No Reported Reaction Past Psychological History: No Psychological Hx Reported Smoking Status: Never smoker Past Alcohol Use History: None Reported Past Drug Use History: None Reported - Past Family History Father Family Medical History: Hypertension Surgical - Exam Vital Signs Temp Pulse Resp BP 98.2 F 123 H 16 90/65 12/23/20 14:21 12/23/20 14:21 12/23/20 14:21 12/23/20 14:21 Physical exam: General: Well-developed, well-nourished HEENT: Normocephalic, sclerae nonicteric Abdomen: Nontender, nondistended Extremities: No edema Neuro: Alert and oriented Bariatric Assessment & Plan (1) Morbid obesity Narrative/Plan: 40-year-old female with morbid obesity. She is interested in sleeve gastrectomy. We discussed the risks, benefits, expected weight loss of the more popular bariatric procedures being performed today. She does require a supervised weight loss program. We'll plan upper endoscopy 2-3 months from now. Patient will call with any additional questions. Status: Acute Bariatric Checklist Checklist: Plan: Checklist: EGD: 1. Hiatal hernia: 2. H. Pylori: HgbA1c: Vitamin D: Smoking: Never smoker Primary care physician referral: Tyrel Psychiatry clearance: Cardiology clearance: Sleep study: Diet journal: VTE risk score: VTE risk level: Rehab needs at discharge:
== END ==
LOC: BARWHC3 13:54
PROVIDERS: ATTEND Surgery
DX: E66.01 Morbid (severe) obesity due to excess calories (principal); Z68.42 Body mass index [BMI] 45.0-49.9, adult; Z88.2 Allergy status to sulfonamides
CPT/HCPCS: 99203

== ENCOUNTER 2021-03-08 09:21 | Day surgery (SDC) | payer OTHER ==
[2021-03-03 14:58] VITALS: BMI 46.5
[2021-03-08 09:36] VITALS: TEMP 97.8
[2021-03-08] MEDS ORDERED: LACTATED RINGERS 1,000 ML IV ONE (09:50)
[2021-03-08] MEDS ORDERED: PROPOFOL 10 MG/ML 20 ML VIAL IV ONE (10:28)
[2021-03-08] MEDS ORDERED: GLYCOPYRROLATE 0.2 MG/ML 2 ML VIAL ONE (10:28)
[2021-03-08] MEDS ORDERED: LIDOCAINE 1% INJ 10MG/ML (20 ML MDV) ONE (10:28)
--- NOTE | 2021-03-08 10:39 | P.GSHP ---
History of Present Illness H&P Date: 03/08/21 41-year-old female here today for upper endoscopy. Patient is being evaluated for sleeve gastrectomy. Patient with mild reflux symptoms. No dysphagia. Past Medical History Past Medical History: Asthma, Osteoarthritis (OA) Additional Past Medical History / Comment(s): STRESS INDUCED ASTHMA History of Any Multi-Drug Resistant Organisms: None Reported Past Surgical History: Hysterectomy Additional Past Surgical History / Comment(s): bilateral legs surgery for hyper flexation of the joints , scopes on knees, removal of right end of clavical, removal of cyst right wrist, hysterectomy with tubes removed 02/05/20 Past Anesthesia/Blood Transfusion Reactions: No Reported Reaction Smoking Status: Never smoker - Past Family History Mother Family Medical History: No Reported History Father Family Medical History: Hypertension Medications and Allergies Home Medications Medication Instructions Recorded Confirmed Type Ibuprofen [Motrin] 600 mg PO Q6HR PRN #30 tab 02/06/20 03/03/21 Rx Venlafaxine HCl ER [Effexor Xr] 37.5 mg PO DAILY 02/16/20 03/03/21 History Ergocalciferol [Vitamin D2 (1250 50,000 unit PO DU 01/07/21 03/03/21 History Mcg = 40859 Iu)] Albuterol Inhaler [Ventolin Hfa 1 - 2 puff INHALATION RT-TID PRN 03/03/21 03/03/21 History Inhaler] Allergies Allergy/AdvReac Type Severity Reaction Status Date / Time Sulfa (Sulfonamide Allergy Unknown Verified 03/03/21 14:29 Antibiotics) Childhood Surgical - Exam Vital Signs Temp Pulse Resp BP Pulse Ox 97.8 F 87 18 143/78 98 03/08/21 09:35 03/08/21 09:35 03/08/21 09:35 03/08/21 09:35 03/08/21 09:35 Physical exam: General: Well-developed, well-nourished HEENT: Normocephalic, sclerae nonicteric Abdomen: Nontender, nondistended Extremities: No edema Neuro: Alert and oriented Assessment and Plan (1) GERD (gastroesophageal reflux disease) Narrative/Plan: Will proceed with upper endoscopy Current Visit: Yes Status: Acute Code(s): K21.9 - GASTRO-ESOPHAGEAL REFLUX DISEASE WITHOUT ESOPHAGITIS SNOMED Code(s): 535380188
--- NOTE | 2021-03-08 10:46 | P.PCN ---
Date of Procedure: 03/08/21 Procedure(s) Performed: Preoperative Dx: GERD, presurgical Postoperative Dx: Gastritis, small to moderate sized hiatal hernia Procedure: EGD with Bx Anesthesia: Sedation Endoscopist: Dr. Berumen Specimens: Antrum Endoscopic Procedure: The patient was on the endoscopy table in the left decubitus position. The Olympus gastroscope was inserted into the oropharynx and passed under direct visualization to the region of the third portion of the duodenum. From that point the scope was slowly withdrawn inspecting all surfaces carefully. There were no neoplastic inflammatory or polypoid lesions throughout the duodenum. There was mild inflammatory changes at the pylorus. Also gastritis was seen in the antrum and body of the stomach. A biopsy of the antrum took place. Retroflexion revealed a small moderate size hiatal hernia. The GE junction was present 2-3 cm above the diaphragmatic hiatus. The r emainder the esophagus was examined and appeared normal. The patient was then taken to the recovery room in stable condition per anesthesia guidelines. Recommendations: Resume diet. Follow-up bariatric clinic 1 month. Begin antiacid therapy.
[2021-03-08 11:21] VITALS: BP 147/95; PULSE 83; RESP 18
== END 2021-03-08 11:49 | disposition home or self-care (01) ==
LOC: ORWHC2ENDO 09:21
PROVIDERS: ATTEND Surgery
DX: K21.9 Gastro-esophageal reflux disease without esophagitis (principal); K29.50 Unspecified chronic gastritis without bleeding; K44.9 Diaphragmatic hernia without obstruction or gangrene; J45.909 Unspecified asthma, uncomplicated; M19.90 Unspecified osteoarthritis, unspecified site; Z79.1 Long term (current) use of non-steroidal anti-inflammatories (NSAID); Z79.899 Other long term (current) drug therapy; Z82.49 Family history of ischemic heart disease and other diseases of the circulatory system; Z88.2 Allergy status to sulfonamides; Z90.710 Acquired absence of both cervix and uterus
CPT/HCPCS: 43239; 88305; J2001; J2704

== ENCOUNTER → 2021-03-29 | Outpatient (CLI) | payer OTHER ==
[2021-03-29 13:57] VITALS: BP 132/82; PULSE 85; TEMP 98.2; BMI 46.5
--- NOTE | 2021-03-29 16:09 | P.BASOAP ---
Subjective Progress Note Date: 03/29/21 Principal diagnosis: Morbid obesity Patient returns after recent upper endoscopy. Patient's EGD showed small to moderate sized hiatal hernia. Patient with history of intermittent reflux. Symptoms have been well controlled since starting omeprazole however. No other changes to her prior history and physical. Objective - Vital Signs Vital signs: Vital Signs Temp 98.2 F 03/29/21 13:54 Pulse 85 03/29/21 13:54 Resp BP 132/82 03/29/21 13:54 Pulse Ox Intake & Output 03/28/21 03/29/21 03/29/21 18:59 06:59 18:59 Weight 127.006 kg - Exam Abdomen: Soft, nontender, nondistended Assessment/Plan (1) Morbid obesity Narrative/Plan: 41-year-old female with history of obesity and recent findings of small moderate sized hiatal hernia. Patient with history of mild reflux chronically improved on omeprazole currently. She and I discussed at length the increased risk of long-term reflux and esophagitis with proposed sleeve gastrectomy. Patient would require concurrent repair of hiatal hernia at that time. Risks of recurrent hiatal hernia reviewed. Initially the patient sounded interested in seeing a different bariatric surgeon to discuss the options of gastric bypass however changed her mind and wants to stay the course with plans for sleeve gastrectomy/hiatal hernia repair. She understands the increased risks of reflux and recurrent hernia. Plan: Date: 03/29/21 Initial Weight: 126.552 kg Initial BMI: 46.4 Current Weight: 127.006 kg Current BMI: 46.5 Type of Surgery: Total Volume in Band: Previous Volume: Volume Removed: Volume Added: Band Size:
== END ==
LOC: BARWHC3 13:08
PROVIDERS: ATTEND Surgery
DX: E66.01 Morbid (severe) obesity due to excess calories (principal); K44.9 Diaphragmatic hernia without obstruction or gangrene; Z68.42 Body mass index [BMI] 45.0-49.9, adult; Z88.2 Allergy status to sulfonamides
CPT/HCPCS: 99211

== ENCOUNTER → 2021-04-11 | Outpatient (CLI) | payer OTHER ==
[2021-04-11 14:10] VITALS: BMI 46.9
== END ==
LOC: BARWHC3 08:07
PROVIDERS: ATTEND Surgery
DX: E66.01 Morbid (severe) obesity due to excess calories (principal); Z71.3 Dietary counseling and surveillance; Z88.2 Allergy status to sulfonamides; Z68.42 Body mass index [BMI] 45.0-49.9, adult
CPT/HCPCS: 97804

== ENCOUNTER → 2021-05-19 | Outpatient (CLI) | payer OTHER ==
--- NOTE | 2021-05-19 15:04 | XR ---
EXAMINATION TYPE: XR chest 1V DATE OF EXAM: 05/19/2021 COMPARISON: NONE HISTORY: Presurgical TECHNIQUE: Single frontal view of the chest is obtained. FINDINGS: There is no focal air space opacity, pleural effusion, or pneumothorax seen. The cardiac silhouette size is within normal limits. The osseous structures are intact. IMPRESSION: No acute process.
== END | disposition home or self-care (01) ==
LOC: RADXRMAIN 14:49
PROVIDERS: ATTEND Surgery
DX: Z01.818 Encounter for other preprocedural examination (principal)
CPT/HCPCS: 71045

== ENCOUNTER → 2021-08-23 | Outpatient (CLI) | payer OTHER ==
[2021-08-23 14:16] VITALS: BP 137/91; PULSE 109; RESP 16; TEMP 98; BMI 47.7
--- NOTE | 2021-08-23 15:38 | P.BASOAP ---
Subjective Progress Note Date: 08/23/21 Principal diagnosis: Morbid obesity Patient returns for reevaluation. She switched her insurance. She remains interested in gastric sleeve at this time. She has thought about the gastric bypass as well but has decided against that. EGD in March showed a moderate size hiatal hernia. Objective - Vital Signs Vital signs: Vital Signs Temp 98 F 08/23/21 14:14 Pulse 109 H 08/23/21 14:14 Resp 16 08/23/21 14:14 BP 137/91 08/23/21 14:14 Pulse Ox Intake & Output 08/22/21 08/23/21 08/23/21 18:59 06:59 18:59 Weight 130.181 kg - Exam Abdomen: Soft, nontender, nondistended Assessment/Plan (1) Morbid obesity Narrative/Plan: 41-year-old female with morbid obesity. We'll tentatively schedule for sleeve gastrectomy with repair hiatal hernia in the near future. We'll discuss with [facility] whether all preoperative requirements have been met. The risks of bleeding, infection, stenosis, stricture, leak, abscess, fistula formation, peritonitis, poor weight loss, reflux, vomiting, conversion to an open procedure, aborting sleeve gastrectomy, [place], PE, DVT, and were disc ussed. The patient understands and wishes to proceed. Plan: Date: 08/23/21 Initial Weight: 126.552 kg Initial BMI: 46.4 Current Weight: 130.181 kg Current BMI: 47.7 Type of Surgery: Total Volume in Band: Previous Volume: Volume Removed: Volume Added: Band Size:
== END ==
LOC: BARWHC3 13:59
PROVIDERS: ATTEND Surgery
DX: E66.01 Morbid (severe) obesity due to excess calories (principal); K44.9 Diaphragmatic hernia without obstruction or gangrene; Z68.42 Body mass index [BMI] 45.0-49.9, adult; Z88.2 Allergy status to sulfonamides
CPT/HCPCS: 99211

== ENCOUNTER → 2021-10-27 | Outpatient (CLI) | payer BC, OTHER ==
[2021-10-27 17:37] LABS: Basophils # (A) 0.07 X 10*3/uL (0.00-0.10); Basophils % (A) 0.7 %; Eosinophils # (A) 0.24 X 10*3/uL (0.04-0.35); Eosinophils % (A) 2.5 %; HCT 45.9 % (37.2-46.3); Immature Grans, Automated 0.2 %; Lymphocytes # (A) 2.79 X 10*3/uL (0.90-5.00); Lymphocytes % (A) 29.5 %; MCH 29.2 pg (27.0-32.0); MCHC 32.7 g/dL (32.0-37.0); MCV 89.3 fL (80.0-97.0); Mean Platelet Volume 12.1 fL (9.5-12.2); Monocytes # (A) 0.87 X 10*3/uL (0.20-1.00); Monocytes % (A) 9.2 %; NRBC Per 100 WBC 0 /100 WBCS (0.0-0.0); Neutrophils # (A) 5.47 X 10*3/uL (1.80-7.70); Neutrophils % (A) 57.9 %; Platelet Count 290 X 10*3/uL (140-440); RBC 5.14 X 10*6/uL (4.10-5.20); RDW 13.2 % (11.5-14.5); WBC 9.46 X 10*3/uL (4.50-10.00)
[2021-10-27 18:11] LABS: African American GFR (CKD) 105.6 (60.0-200.0); Albumin 4.7 g/dL (3.8-4.9); Albumin/Globulin Ratio 1.62 (1.60-3.17); Anion Gap 16.2 mmol/L (10.00-18.00); BUN/Creat Ratio 20.42 Ratio (12.00-20.00); Blood Urea Nitrogen 16.6 mg/dL (9.0-27.0); Carbon Dioxide 20.9 mmol/L (20.0-27.5); Globulin 2.9 g/dL (1.6-3.3); Non-African American GFR(CKD) 91.1 (60.0-200.0); Potassium 4.4 mmol/L (3.5-5.5); Total Bilirubin 0.3 mg/dL (0.30-1.20); Total Protein 7.5 g/dL (6.2-8.2)
== END | disposition home or self-care (01) ==
LOC: LABPAT 14:05
PROVIDERS: ATTEND Surgery
DX: Z01.812 Encounter for preprocedural laboratory examination (principal)
CPT/HCPCS: 36415; 80053; 85025

== ENCOUNTER 2021-10-31 10:51 | Inpatient (IN) | payer BC, OTHER ==
[~2021-10-31 10:51] MED LIST changes: +DEXAMETHASONE SOD PHOSPHATE 4 MG/ML 1 ML VIAL IV ONE; +ENOXAPARIN 40 MG/0.4 ML SYRINGE SQ PRN; -LACTATED RINGERS 1,000 ML IV SCH; -Pre Op ABX Message 1 EACH MISC MISCELLANE ONE; +ceFAZolin 3 GM in SODIUM CHLORIDE 0.9% 100 ML IVPB PRN
[2021-10-31] MEDS: LACTATED RINGERS 1,000 ML IV SCH (11:50)
[2021-10-31] MEDS ORDERED: SCOPOLAMINE 1 MG/72 HR PATCH TRANSDERM ONE (11:52)
[2021-10-31] MEDS ORDERED: LIDOCAINE 1% (10MG/ML) FOR IV START INTRADERMA ONE (11:53)
[2021-10-31] MEDS ORDERED: diphenhydrAMINE 50 MG/ML 1 ML VIAL ONE ×2 (12:27→13:10)
[2021-10-31] MEDS ORDERED: diphenhydrAMINE 50 MG/ML 1 ML VIAL IVP ONE ×2 (12:30→13:12)
--- NOTE | 2021-10-31 13:01 | P.GSHP ---
History of Present Illness H&P Date: 10/31/21 Chief Complaint: Morbid obesity 41-year-old female here today for elective sleeve gastrectomy. Patient was first seen in the office last December. Patient with history of chronic joint pain and mild reflux. Patient was found have a moderate-sized hiatal hernia on recent EGD. Patient is not interested in gastric bypass. BMI one first met with the patient was 46, BMI currently 48. Past Medical History Past Medical History: Asthma, Osteoarthritis (OA) Additional Past Medical History / Comment(s): STRESS INDUCED ASTHMA History of Any Multi-Drug Resistant Organisms: None Reported Past Surgical History: Hysterectomy Additional Past Surgical History / Comment(s): bilateral legs surgery for hyper flexation of the joints , scopes on knees, removal of right end of clavical, removal of cyst right wrist, hysterectomy with tubes removed 02/05/20 Past Anesthesia/Blood Transfusion Reactions: No Reported Reaction Past Psychological History: Anxiety Smoking Status: Never smoker Past Alcohol Use History: Rare Past Drug Use History: None Reported - Past Family History Mother Family Medical History: No Reported History Father Family Medical History: Hypertension Medications and Allergies Home Medications Medication Instructions Recorded Confirmed Type Ibuprofen [Motrin] 600 mg PO Q6HR PRN #30 tab 02/06/20 10/31/21 Rx Venlafaxine HCl ER [Effexor Xr] 37.5 mg PO DAILY 02/16/20 10/31/21 History Ergocalciferol [Vitamin D2 (1250 50,000 unit PO DU 01/07/21 10/31/21 History Mcg = 46737 Iu)] Albuterol Inhaler [Ventolin Hfa 1 - 2 puff INHALATION RT-TID PRN 03/03/21 10/31/21 History Inhaler] Omeprazole [PriLOSEC] 20 mg PO AC-BRKFST #90 cap 03/08/21 10/31/21 Rx Allergies Allergy/AdvReac Type Severity Reaction Status Date / Time ondansetron [From Zofran] Allergy Rash/Hives Verified 10/31/21 12:40 Sulfa (Sulfonamide Allergy Unknown Verified 04/11/21 10:24 Antibiotics) Childhood Surgical - Exam Vital Signs Temp Pulse Resp BP Pulse Ox 97 F L 78 20 132/88 99 10/31/21 11:41 10/31/21 11:41 10/31/21 11:41 10/31/21 11:41 10/31/21 11:41 Physical exam: General: Well-developed, well-nourished HEENT: Normocephalic, sclerae nonicteric Abdomen: Nontender, nondistended Extremities: No edema Neuro: Alert and oriented Assessment and Plan (1) Morbid obesity Narrative/Plan: 41-year-old female with morbid obesity and associated comorbidities. Patient with recent findings of moderate-sized hiatal hernia. Patient only has mild reflux she states. Discussed options in detail with the patient. Patient would like to proceed with laparoscopic sleeve gastrectomy with hiatal hernia repair. The risks of bleeding, infection, stenosis, stricture, leak, abscess, fistula formation, peritonitis, poor weight loss, reflux, vomiting, conversion to an open procedure, aborting sleeve gastrectomy, [place], PE, DVT, and were discussed. The patient understands and wishes to proceed. Current Visit: No Status: Acute Code(s): E66.01 - MORBID (SEVERE) OBESITY DUE TO EXCESS CALORIES SNOMED Code(s): 686277218
[2021-10-31] MEDS ORDERED: fentaNYL (PF) 50 MCG/ML 2 ML AMP ONE (13:25)
[2021-10-31] MEDS ORDERED: LIDOCAINE 1% INJ 10MG/ML (20 ML MDV) ONE (13:25)
[2021-10-31] MEDS ORDERED: KETOROLAC 15 MG/ML 1 ML VIAL ONE (13:25)
[2021-10-31] MEDS ORDERED: SUCCINYLCHOLINE CHLORIDE VIAL 200 MG/10 ML VIAL IV ONE (13:25)
[2021-10-31] MEDS ORDERED: NEOSTIGMINE 1 MG/ML 10 ML VIAL ONE (13:25)
[2021-10-31] MEDS ORDERED: GLYCOPYRROLATE 0.2 MG/ML 2 ML VIAL ONE (13:25)
[2021-10-31] MEDS ORDERED: MIDAZOLAM 2 MG/2 ML VIAL ONE (13:25)
[2021-10-31] MEDS ORDERED: PHENYLEPHRINE-0.9% NACL SYG 1,000 MCG/10 ML SYRINGE ONE (13:25)
[2021-10-31] MEDS ORDERED: ROCURONIUM 10 MG/ML (5 ML VIAL) IV ONE (13:25)
[2021-10-31] MEDS ORDERED: KETAMINE 10 MG/ML 20 ML VIAL ONE (13:25)
[2021-10-31] MEDS ORDERED: PROPOFOL 10 MG/ML 20 ML VIAL IV ONE (13:25)
[2021-10-31] MEDS ORDERED: BUPIVACAINE (PF) 0.25% 30 ML VIAL SQ ONE (13:54)
[2021-10-31] MEDS ORDERED: METHYLENE BLUE 3 MG in DEXTROSE 5% IN WATER 500 ML IRRIGATION ONE ×2 (14:02)
[2021-10-31] MEDS ORDERED: LACTATED RINGERS 1,000 ML IV ONE (15:17)
[2021-10-31] MEDS ORDERED: NALOXONE 0.4 MG/ML 1 ML VIAL IV PRN (15:25)
[2021-10-31] MEDS ORDERED: HYOSCYAMINE ORAL DROPS 1.875 MG/15 ML BOTTLE PO PRN (15:25)
[2021-10-31] MEDS ORDERED: SIMETHICONE 40 MG/0.6 ML DROPS 2,000 MG/30 ML BOTTLE PO PRN (15:25)
[2021-10-31] MEDS ORDERED: diphenhydrAMINE 50 MG/ML 1 ML VIAL IVP PRN (15:25)
--- NOTE | 2021-10-31 15:30 | P.OP ---
Date of Procedure: 10/31/21 Procedure(s) Performed: PREOPERATIVE DIAGNOSIS: Morbid obesity POSTOPERATIVE DIAGNOSIS: Same PROCEDURE: Laparoscopic sleeve gastrectomy SURGEON: Ata EBL: Minimal ANESTHESIA: General COMPLICATIONS: None OPERATIVE PROCEDURE: Patient was placed in the operating table in the supine position. She was placed under general anesthesia at that time. The abdomen was prepped and draped in sterile fashion after the patient was placed in lithotomy. A 5 mm optical trocar was used to enter the abdominal cavity in the left upper quadrant. Insufflation took place to 15 millimeters mercury. An additional right subxiphoid 5 mm trocar was then placed under direct visualization and then removed. 2 additional 5 mm trochars were placed in the right upper quadrant and left upper quadrant under direct visualization and a 15 mm trocar in the supraumbilical location. The liver was retracted using a medium Shaun liver retractor through the right subxiphoid trocar site. The hiatus was inspected. The gastrohepatic ligament was divided. The retrogastric space was carefully inspected. There was no visible hiatal hernia seen despite the recent EGD suggesting a hernia present. When I was pushing on the cardia of the stomach I could not get it to push into the mediastinum. At that point I moved to the mid aspect of the greater curvature the stomach. The short gastric vasculature was divided using a LigaSure device proximally. I then switched and divided the short gastrics distally to a 3-4 cm from the pylorus. The dissection took place up to the left diaphragmatic crura at that point. The posterior short gastrics were likewise divided using the LigaSure device. Once the stomach was fully mobilized the blunt tipped 40-Luxembourgish bougie dilator was advanced into the stomach and advanced all the way to the prepyloric location. A black echelon 60 stapler with echelon Endopath staple line reinforcement was utilized and fired tangentially across the antrum taking care to avoid narrowing at the incisura angularis. Subsequent firings of the green echelon 60 stapler with echelon Endopath staple line reinforcement took place proximally staying on the outer edge of our dilator. Once we reached the most proximal portion of the stomach a single firing of the gold echelon [address] The oral gastric tube was reinserted. The stomach was insufflated with approximately 100 mL of methylene blue. No evidence of leak or obstruction was seen. 2 small areas of oozing along the staple line were controlled using the clip sales project engineer. Tisseel fibrin glue was used along the length of the staple line. The stomach remnant was removed from the 15 mm trocar site without difficulty. The fascia at the 15 more site was closed using interrupted 0 Vicryl sutures with the laparoscopic suture passer and [place] Raymond technique. The insufflation was evacuated. The skin at all 5 incisions were closed using 4-0 Monocryl sutures. Skin glue was then applied. DISPOSITION: Stable to recovery room
[2021-10-31] MEDS: HYDROmorphone 0.5 MG/0.5 ML SYRINGE IVP PRN ×2 (15:40→15:53)
[2021-10-31] MEDS ORDERED: PROCHLORPERAZINE INJ 10 MG/2 ML VIAL IVP PRN (16:50)
[2021-10-31] MEDS: ACETAMINOPHEN IV (For NPO) 1,000 MG in EMPTY BAG 1 BAG IVPB SCH (17:31)
[2021-10-31] MEDS: 0.9% NACL WITH KCL 20 MEQ/L 1,000 ML IV SCH (18:13)
[2021-10-31] MEDS: ALBUTEROL NEBULIZED 2.5 MG/3 ML INHALATION SCH ×2 (18:25→20:57)
[2021-10-31] MEDS: HYDROmorphone 1 MG/ML 1 ML SYRINGE IVP PRN (19:58)
[2021-11-01] MEDS: ACETAMINOPHEN IV (For NPO) 1,000 MG in EMPTY BAG 1 BAG IVPB SCH ×5 (00:16→23:11)
[2021-11-01] MEDS: 0.9% NACL WITH KCL 20 MEQ/L 1,000 ML IV SCH ×4 (00:52→17:29)
[2021-11-01] MEDS: ENOXAPARIN 40 MG/0.4 ML SYRINGE SQ SCH ×3 (00:57→19:23)
[2021-11-01] MEDS: HYDROmorphone 1 MG/ML 1 ML SYRINGE IVP PRN (02:36)
[2021-11-01] MEDS: LACTATED RINGERS 1,000 ML IV SCH (07:34)
[2021-11-01] MEDS ORDERED: PANTOPRAZOLE 40 MG/10 ML VIAL IV SCH (09:00)
[2021-11-01 09:13] LABS: Basophils # (A) 0.02 X 10*3/uL (0.00-0.10); Basophils % (A) 0.2 %; Eosinophils # (A) 0.02 X 10*3/uL (0.04-0.35); Eosinophils % (A) 0.2 %; HCT 39.5 % (37.2-46.3); HGB 12.6 g/dL (12.0-15.0); Immature Grans, Automated 0.4 %; Lymphocytes # (A) 1.72 X 10*3/uL (0.90-5.00); Lymphocytes % (A) 15.6 %; MCH 28.9 pg (27.0-32.0); MCHC 31.9 g/dL (32.0-37.0); MCV 90.6 fL (80.0-97.0); Mean Platelet Volume 12.6 fL (9.5-12.2); Monocytes # (A) 0.92 X 10*3/uL (0.20-1.00); Monocytes % (A) 8.3 %; NRBC Per 100 WBC 0 /100 WBCS (0.0-0.0); Neutrophils % (A) 75.3 %; Platelet Count 241 X 10*3/uL (140-440); RBC 4.36 X 10*6/uL (4.10-5.20); RDW 13.4 % (11.5-14.5); WBC 11.02 X 10*3/uL (4.50-10.00)
[2021-11-01] MEDS: KETOROLAC 15 MG/ML 1 ML VIAL IVP SCH ×4 (09:27→23:11)
[2021-11-01] MEDS: ALBUTEROL NEBULIZED 2.5 MG/3 ML INHALATION SCH ×4 (09:34→20:29)
[2021-11-01 09:54] LABS: African American GFR (CKD) 133.1 (60.0-200.0); Anion Gap 12.8 mmol/L (10.00-18.00); Blood Urea Nitrogen 8.8 mg/dL (9.0-27.0); Calcium 8.5 mg/dL (8.7-10.3); Carbon Dioxide 19.2 mmol/L (20.0-27.5); Non-African American GFR(CKD) 114.8 (60.0-200.0); Phosphorus 2.5 mg/dL (2.4-5.1); Potassium 4.4 mmol/L (3.5-5.5)
[2021-11-01] MEDS ORDERED: ALBUTEROL HFA INHALER INHALATION PRN (10:39)
--- NOTE | 2021-11-01 11:13 | FL ---
EXAMINATION TYPE: FL UGI DATE OF EXAM: 11/01/2021 COMPARISON: None HISTORY: Post gastric sleeve TECHNIQUE: A single contrast UGI study is performed. FINDINGS: Contrast passes from the distal esophagus through the gastric sleeve with mild hesitancy. N o extravasation of contrast is evident. No significant free air is evident during the exam. Overhead radiographs were obtained which are unremarkable. Fluoroscopy time: 42 seconds Images: 14 IMPRESSIONS: 1. Gastric sleeve appears unremarkable without severe stenosis or extravasation.
[2021-11-01 11:50] VITALS: BMI 48.6
[2021-11-01] MEDS: VENLAFAXINE HCL ER 37.5 MG CAP PO SCH (12:40)
--- NOTE | 2021-11-01 13:30 | P.CONS ---
History of Present Illness - Reason for Consult Consult date: 11/01/21 Medical management - Chief Complaint Status post sleeve gastrectomy - History of Present Illness Patient is a 41-year-old female with a known history of asthma, osteoarthritis and anxiety was admitted to hospital for elective sleeve gastrectomy. Patient tolerated the procedure very well. Currently denies any complaints of nausea or vomiting. No complaints of abdominal pain. Patient able to pass flatus minimally. No complaints of fever or chills. No headache or dizziness or lightheadedness. No other recent illnesses. Patient had upper GI series today which showed gastric sleeve appears unremarkable without severe stenosis or extravasation. Patient will be started on liquid diet as per surgery. Laboratory data showed WBC 11.02 hemoglobin 12.6 and platelets 241 Sodium 139 potassium 4.4 chloride 107 bicarb is 19.2 BUN 8.8 and creatinine 0.6 and calcium 8.5 and magnesium 2.0 Review of Systems Constitutional: Patient denies any fever or chills . No generalized weakness or weight loss. Abdomen: Patient denied nausea vomiting and diarrhea and abdominal pain. Cardiovascular: Patient denies any chest pain or short of breath no pal pitations. Respiratory: patient denied any cough is from production. No shortness of breath Neurologic: Patient denied any numbness or tingling headache. Musculoskeletal: Patient denies any complaints of joint swelling or deformity. Skin: Negative Psychiatric: Negative Endocrine: No heat or cold intolerance. No recent weight gain. Genitourinary: No dysuria or hematuria. All other 14 point ROS negative except the above Past Medical History Past Medical History: Asthma, Osteoarthritis (OA) Additional Past Medical History / Comment(s): STRESS INDUCED ASTHMA History of Any Multi-Drug Resistant Organisms: None Reported Past Surgical History: Hysterectomy Additional Past Surgical History / Comment(s): bilateral legs surgery for hyper flexation of the joints , scopes on knees, removal of right end of clavical, removal of cyst right wrist, hysterectomy with tubes removed 02/05/20 Past Anesthesia/Blood Transfusion Reactions: No Reported Reaction Past Psychological History: Anxiety Smoking Status: Never smoker Past Alcohol Use History: Rare Past Drug Use History: None Reported - Past Family History Mother Family Medical History: No Reported History Father Family Medical History: Hypertension Medications and Allergies Home Medications Medication Instructions Recorded Confirmed Type Ibuprofen [Motrin] 600 mg PO Q6HR PRN #30 tab 02/06/20 10/31/21 Rx Venlafaxine HCl ER [Effexor Xr] 37.5 mg PO DAILY 02/16/20 10/31/21 History Ergocalciferol [Vitamin D2 (1250 50,000 unit PO DU 01/07/21 10/31/21 History Mcg = 93784 Iu)] Albuterol Inhaler [Ventolin Hfa 1 - 2 puff INHALATION RT-TID PRN 03/03/21 10/31/21 History Inhaler] Omeprazole [PriLOSEC] 20 mg PO AC-BRKFST #90 cap 03/08/21 10/31/21 Rx Allergies Allergy/AdvReac Type Severity Reaction Status Date / Time ondansetron [From Zofran] Allergy Rash/Hives Verified 10/31/21 12:40 Sulfa (Sulfonamide Allergy Unknown Verified 04/11/21 10:24 Antibiotics) Childhood Physical Exam Vitals: Vital Signs Temp Pulse Pulse Resp BP BP Pulse Ox 11/01/21 07:34 97.9 F 83 17 153/91 93 L 11/01/21 07:17 98.6 F 86 20 124/66 11/01/21 00:53 98.6 F 95 18 118/78 95 10/31/21 19:52 98.0 F 103 H 20 116/74 96 10/31/21 19:00 103 H 133/85 10/31/21 18:45 105 H 131/82 10/31/21 18:30 79 127/83 10/31/21 18:12 101 H 133/89 95 10/31/21 17:57 89 130/87 97 10/31/21 17:42 75 130/85 98 10/31/21 17:27 94 136/89 97 10/31/21 17:12 77 129/85 95 10/31/21 16:41 98.1 F 75 16 150/94 98 10/31/21 16:32 65 16 118/58 94 L 10/31/21 16:15 66 16 118/56 95 10/31/21 16:02 75 16 118/60 94 L 10/31/21 15:47 82 16 134/69 100 10/31/21 15:30 93 16 131/67 100 10/31/21 15:29 98.7 F 99 14 141/79 100 10/31/21 11:41 97 F L 78 20 132/88 99 Intake and Output 10/31/21 11/01/21 11/01/21 22:59 06:59 14:59 Intake Total 900 Output Total 420 Balance 480 Intake: IV 900 0.9% NaCl with KCl 20 Meq 150 /l 1,000 ml @ 150 mls/hr IV .Q6H40M [facility] Rx#: [id number] Output: Urine 400 Estimated Blood Loss 20 Other: Voiding Method Toilet PHYSICAL EXAMINATION: Patient is lying in the bed comfortably, no acute distress, awake alert and oriented.. HEENT: Normocephalic. Neck is supple. Pupils reactive. Nostrils clear. Oral cavity is moist. Neck reveals no JVD, carotid bruits, or thyromegaly. CHEST EXAMINATION: Trachea is central. Symmetrical expansion. Lung nolan clear to auscultation and percussion. CARDIAC: Normal S1, S2 with no gallops. No murmurs ABDOMEN: Soft. Bowel sounds normal. No organomegaly. No abdominal bruits. Extremities: reveal no edema. No clubbing or cyanosis Neurologically awake, alert, oriented x3 with well-coordinated movements. No focal deficits noted Skin: No rash or skin lesions. Psychiatric: Coperative. Nonsuicidal Musculoskeletal: No joint swelling or deformity. Normal range of motion. Results CBC & Chem 7: 11/01/21 05:18 11/01/21 05:18 Labs: Abnormal Lab Results - Last 24 Hours (Table) 11/01/21 11/01/21 Range/Units 05:18 05:18 WBC 11.02 H (4.50-10.00) X 10*3/uL MCHC 31.9 L (32.0-37.0) g/dL MPV 12.6 H (9.5-12.2) fL Neutrophils # 8.30 H (1.80-7.70) X 10*3/uL Eosinophils # 0.02 L (0.04-0.35) X 10*3/uL Carbon Dioxide 19.2 L (20.0-27.5) mmol/L BUN 8.8 L (9.0-27.0) mg/dL Calcium 8.5 L (8.7-10.3) mg/dL Assessment and Plan Assessment: S/p laparoscopic sleeve gastrectomy. Postoperative day 1 Asthma not in exacerbation Osteoarthritis Anxiety Morbid obesity BMI 48.6 DVT prophylaxis with Lovenox subcu Plan: Patient be current on IV hydration and symptomatic management for nausea. Encourage incentive spirometry and ambulation. Patient will be continued on albuterol inhalation as needed for shortness of breath and continue with venlafaxine. Follow-up H&H and further recommendations based on clinical course. Thank you for your consult.
--- NOTE | 2021-11-01 13:32 | P.PN ---
Subjective Progress Note Date: 11/01/21 CHIEF COMPLAINT: Morbid Obesity HISTORY OF PRESENT ILLNESS: Patient is status post laparoscopic sleeve ga strectomy. Postop day #1. Upper GI shows gastric sleeve appears unremarkable without severe stenosis or extravasation. Patient denies any nausea. She is having flatus. She reports her abdominal pain is controlled. She has been up and ambulating. She is awaiting her abdominal binder. She's been given Afebrile. WBC is 11.02 hemoglobin total 0.6 platelets 241 sodium 139 potassium 4.4 creatinine 0.6 magnesium 2.0 PHYSICAL EXAM: VITAL SIGNS: Reviewed. GENERAL: Well-developed in no acute distress. HEENT: No sclera icterus. Extraocular movements grossly intact. Moist buccal mucosa. Head is atraumatic, normocephalic. ABDOMEN: Soft. Nondistended. Incision sites clean dry and intact NEUROLOGIC: Alert and oriented. Cranial nerves II through XII grossly intact. ASSESSMENT: 1. Morbid obesity status post laparoscopic sleeve gastrectomy PLAN: -Start bariatric clear liquid diet -Nursing is calling for abdominal binder -Toradol added for pain -Continue IV fluids -Encouraged patient ambulate -Encouraged patient to use incentive spirometer -DVT prophylaxis Lovenox and GI prophylaxis Protonix Physician Product Strategy Director note has been reviewed by physician. Signing provider agrees with the documented findings, assessment, and plan of care. I have personally seen and examined the patient, reviewed the HELPER TEACHER /PAs history, exam and MDM and agree with the assessment and plan as written. Based on total visit time, I have performed more than 50% of the visit. As above: Patient doing well today. Continue bariatric clear liquids. Ambulate. Recheck labs tomorrow. Possible discharge tomorrow afternoon. Objective - Vital Signs Vital signs: Vital Signs Temp 98.0 F 11/01/21 11:00 Pulse 80 11/01/21 12:29 Resp 17 11/01/21 11:00 BP 150/84 11/01/21 11:00 Pulse Ox 96 11/01/21 12:19 Intake & Output 10/31/21 11/01/21 11/01/21 18:59 06:59 18:59 Intake Total 2000 Output Total 20 400 Balance 1980 Weight 128.5 kg 128.5 kg Intake: IV 2000 0.9% NaCl with KCl 20 Meq 150 /l 1,000 ml @ 150 mls/hr IV .Q6H40M [facility] Rx#: [id number] Output: Urine 400 Estimated Blood Loss 20 Other: Voiding Method Toilet - Labs CBC & Chem 7: 11/01/21 05:18 11/01/21 05:18 Labs: Abnormal Lab Results - Last 24 Hours (Table) 11/01/21 11/01/21 Range/Units 05:18 05:18 WBC 11.02 H (4.50-10.00) X 10*3/uL MCHC 31.9 L (32.0-37.0) g/dL MPV 12.6 H (9.5-12.2) fL Neutrophils # 8.30 H (1.80-7.70) X 10*3/uL Eosinophils # 0.02 L (0.04-0.35) X 10*3/uL Carbon Dioxide 19.2 L (20.0-27.5) mmol/L BUN 8.8 L (9.0-27.0) mg/dL Calcium 8.5 L (8.7-10.3) mg/dL
[2021-11-02] MEDS: 0.9% NACL WITH KCL 20 MEQ/L 1,000 ML IV SCH (02:24)
[2021-11-02] MEDS: KETOROLAC 15 MG/ML 1 ML VIAL IVP SCH ×2 (05:55→11:52)
[2021-11-02] MEDS: ACETAMINOPHEN IV (For NPO) 1,000 MG in EMPTY BAG 1 BAG IVPB SCH (05:55)
[2021-11-02 07:09] VITALS: BP 120/84; PULSE 77; RESP 16; TEMP 98.1
[2021-11-02] MEDS: ALBUTEROL NEBULIZED 2.5 MG/3 ML INHALATION SCH ×2 (07:17→11:02)
[2021-11-02] MEDS: LACTATED RINGERS 1,000 ML IV SCH (07:21)
[2021-11-02] MEDS ORDERED: PANTOPRAZOLE 40 MG TABLET PO SCH (07:30)
[2021-11-02 09:10] LABS: Basophils # (A) 0.04 X 10*3/uL (0.00-0.10); Basophils % (A) 0.5 %; Eosinophils # (A) 0.15 X 10*3/uL (0.04-0.35); Eosinophils % (A) 1.9 %; HCT 37.8 % (37.2-46.3); HGB 12.3 g/dL (12.0-15.0); Immature Grans, Automated 0.3 %; Lymphocytes # (A) 2.64 X 10*3/uL (0.90-5.00); Lymphocytes % (A) 34.3 %; MCH 29.3 pg (27.0-32.0); MCHC 32.5 g/dL (32.0-37.0); Mean Platelet Volume 12.3 fL (9.5-12.2); Monocytes # (A) 0.69 X 10*3/uL (0.20-1.00); NRBC Per 100 WBC 0 /100 WBCS (0.0-0.0); Neutrophils # (A) 4.16 X 10*3/uL (1.80-7.70); Platelet Count 226 X 10*3/uL (140-440); RDW 13.7 % (11.5-14.5)
[2021-11-02] MEDS: VENLAFAXINE HCL ER 37.5 MG CAP PO SCH (09:11)
[2021-11-02] MEDS: ENOXAPARIN 40 MG/0.4 ML SYRINGE SQ SCH (09:12)
[2021-11-02 09:32] LABS: African American GFR (CKD) 133.1 (60.0-200.0); Anion Gap 9.2 mmol/L (10.00-18.00); Blood Urea Nitrogen 4.2 mg/dL (9.0-27.0); Calcium 8.5 mg/dL (8.7-10.3); Carbon Dioxide 21.8 mmol/L (20.0-27.5); Non-African American GFR(CKD) 114.8 (60.0-200.0); Potassium 4.1 mmol/L (3.5-5.5)
[2021-11-02] MEDS ORDERED: ACETAMINOPHEN TAB 500 MG TAB PO SCH (12:00)
--- NOTE | 2021-11-02 13:15 | P.DS ---
Providers Date of admission: 10/31/21 10:51 Expected date of discharge: 11/02/21 Attending physician: Bright Berumen Consults: 10/31/21 15:25 Consult Physician Routine Consulting Provider: Sujatha Mcleod Consult Reason/Comments: Medical management Do you want consulting provider notified?: Yes Primary care physician: Roxana Sarah Hospital Course: Discharge diagnosis 1. Morbid obesity status post laparoscopic sleeve gastrectomy Hospital course This is a 41-year-old female with known history of morbid obesity status post laparoscopic sleeve gastrectomy. Patient's upper GI appeared unremarkable without stenosis or extravasation. Patient tolerating bariatric clear liquid diet. Her pain is controlled. She denies any nausea or vomiting. She is afebrile. She is up and ambulating. She is having flatus. Incision sites clean dry and intact. Patient is stable for discharge. Please refer to chart for any further details. Physician Brothel Keeper note has been reviewed by physician. Signing provider agrees with the documented findings, assessment, and plan of care. Patient Condition at Discharge: Stable Plan - Discharge Summary New Discharge Prescriptions: New Omeprazole [PriLOSEC] 40 mg PO DAILY #30 cap bisacodyL [Dulcolax] 5 mg PO DAILY PRN #10 tab PRN Reason: Constipation Simethicone 40 mg/0.6 ml Drops [Mylicon Drops] 40 mg PO PCHS PRN #30 ml PRN Reason: Gas Ondansetron Odt [Zofran Odt] 4 mg PO Q8HR PRN #9 tab PRN Reason: Nausea Acetaminophen Tab [Tylenol] 1,000 mg PO Q6HR PRN #30 tablet PRN Reason: Pain Continue Venlafaxine HCl ER [Effexor XR] 37.5 mg PO DAILY Albuterol Inhaler [Ventolin Hfa Inhaler] 1 - 2 puff INHALATION RT-TID PRN PRN Reason: Shortness Of Breath Or Wheezing Ergocalciferol [Vitamin D2 (1250 Mcg = 45151 Iu)] 50,000 unit PO DU Discontinued Ibuprofen [Motrin] 600 mg PO Q6HR PRN #30 tab PRN Reason: Pain Omeprazole [PriLOSEC] 20 mg PO AC-BRKFST #90 cap Discharge Medication List Venlafaxine HCl ER [Effexor XR] 37.5 mg PO DAILY 02/16/20 [History] Ergocalciferol [Vitamin D2 (1250 Mcg = 42620 Iu)] 50,000 unit PO DU 01/07/21 [History] Albuterol Inhaler [Ventolin Hfa Inhaler] 1 - 2 puff INHALATION RT-TID PRN 03/03/21 [History] Acetaminophen Tab [Tylenol] 1,000 mg PO Q6HR PRN #30 tablet 11/02/21 [Rx] Omeprazole [PriLOSEC] 40 mg PO DAILY #30 cap 11/02/21 [Rx] Ondansetron Odt [Zofran Odt] 4 mg PO Q8HR PRN #9 tab 11/02/21 [Rx] Simethicone 40 mg/0.6 ml Drops [Mylicon Drops] 40 mg PO PCHS PRN #30 ml 11/02/21 [Rx] bisacodyL [Dulcolax] 5 mg PO DAILY PRN #10 tab 11/02/21 [Rx] Follow up [facility](s[facility] [place] [place] [facility] - 11/04/21 10:00 am Roxana Sarah MD [Primary Care Provider] - 1-2 Days Patient Instructions/Handouts: Nutrition after Bariatric Surgery (DC), Laparoscopic Sleeve Gastrectomy (DC) Activity/Diet/Wound Care/Special Instructions: No lifting over 10 pounds You may shower. No soaking or tub baths for 2 weeks Very light activity until you are reevaluated at your follow up appointment with your surgeon No straws or carbonated beverages Discharge Disposition: HOME SELF-CARE
== END 2021-11-02 14:55 | disposition home or self-care (01) | DRG 621 ==
LOC: 2ORMAIN 10:51 → 4SSUR 15:38
PROVIDERS: ADMIT Surgery; ATTEND Surgery
PROC: 0DB64Z3 Excision of Stomach, Percutaneous Endoscopic Approach, Vertical (ICD-10-PCS; principal; 2021-10-31 12:25)
DX: E66.01 Morbid (severe) obesity due to excess calories (principal); Z68.42 Body mass index [BMI] 45.0-49.9, adult; G89.29 Other chronic pain; M19.90 Unspecified osteoarthritis, unspecified site; K21.9 Gastro-esophageal reflux disease without esophagitis; F41.9 Anxiety disorder, unspecified; J45.909 Unspecified asthma, uncomplicated; Z79.899 Other long term (current) drug therapy; Z90.710 Acquired absence of both cervix and uterus; Z90.79 Acquired absence of other genital organ(s); Z87.19 Personal history of other diseases of the digestive system; Z87.39 Personal history of other diseases of the musculoskeletal system and connective tissue; Z87.2 Personal history of diseases of the skin and subcutaneous tissue; Z98.890 Other specified postprocedural states; Z71.3 Dietary counseling and surveillance; Z88.2 Allergy status to sulfonamides; Z88.8 Allergy status to other drugs, medicaments and biological substances; Z82.49 Family history of ischemic heart disease and other diseases of the circulatory system
CPT/HCPCS: 74240; 80048; 80051; 82310; 82565; 83735; 84100; 84520; 85025; 88307; 94640

== ENCOUNTER → 2021-11-08 | Outpatient (CLI) | payer BC, OTHER ==
[2021-11-08 14:42] VITALS: RESP 16; TEMP 98.2; BMI 46.0
[2021-11-08 15:06] VITALS: BP 133/91; PULSE 98
--- NOTE | 2021-11-08 17:35 | P.BASOAP ---
Subjective Progress Note Date: 11/08/21 Principal diagnosis: Morbid obesity Patient returns after recent sleeve gastrectomy. Doing well at this time. Drinking 64 ounces of liquids daily. 90 g of protein daily. She was to return to work tomorrow. She has lost 10 pounds since her last visit. Denies pain. No heartburn. Objective - Vital Signs Vital signs: Vital Signs Temp 98.2 F 11/08/21 14:40 Pulse 98 11/08/21 14:40 Resp 16 11/08/21 14:40 BP 133/91 11/08/21 14:40 Pulse Ox Intake & Output 11/07/21 11/08/21 11/08/21 18:59 06:59 18:59 Weight 125.645 kg - Exam Abdomen: Soft, nondistended, incisions clean and dry Assessment/Plan (1) Morbid obesity Narrative/Plan: Patient doing well at this time. Continue dietary and exercise regimen. Advance to pured diet next week. Patient will be in contact with dietitian. Follow-up 3-4 weeks. We'll check one month labs at that time. Plan: Date: 11/08/21 Initial Weight: 126.552 kg Initial BMI: 46.4 Current Weight: 125.645 kg Current BMI: 46.0 Type of Surgery: Total Volume in Band: Previous Volume: Volume Removed: Volume Added: Band Size:
== END ==
LOC: BARWHC3 14:03
PROVIDERS: ATTEND Surgery
DX: E66.01 Morbid (severe) obesity due to excess calories (principal); Z98.84 Bariatric surgery status; Z68.42 Body mass index [BMI] 45.0-49.9, adult; Z88.2 Allergy status to sulfonamides; Z88.8 Allergy status to other drugs, medicaments and biological substances
CPT/HCPCS: 99211

== ENCOUNTER → 2021-12-27 | Outpatient (CLI) | payer BC, OTHER ==
[2021-12-27 13:27] VITALS: BP 141/90; PULSE 75; RESP 12; TEMP 98.5
--- NOTE | 2021-12-27 13:38 | P.BASOAP ---
Subjective Progress Note Date: 12/27/21 Principal diagnosis: Morbid obesity Patient returns after recent sleeve gastrectomy performed 10/31. Patient had an appointment on 426 and has not seen me since then. Complaining of some fatigue. No pain, no GERD, no nausea or vomiting. Incisions are doing well. She is overdue for her one-month labs. Objective - Vital Signs Vital signs: Vital Signs Temp 98.5 F 12/27/21 13:23 Pulse 75 12/27/21 13:23 Resp 12 12/27/21 13:23 BP 141/90 12/27/21 13:23 Pulse Ox FiO2 Intake & Output 12/26/21 12/27/21 12/27/21 18:59 06:59 18:59 Weight 114.305 kg - Exam Abdomen: Soft, nontender, nondistended Assessment/Plan (1) Morbid obesity Narrative/Plan: Patient doing well at this time. Will be seen by dietary today. We'll order one month labs. Continue dietary and exercise regimen. Follow-up 6 weeks. Plan: Date: 12/27/21 Initial Weight: 126.552 kg Initial BMI: Current Weight: 114.305 kg Current BMI: Type of Surgery: Total Volume in Band: Previous Volume: Volume Removed: Volume Added: Band Size:
[2021-12-27 14:10] VITALS: BMI 41.9
[2021-12-27 23:05] LABS: HCT 43.9 % (37.2-46.3); HGB 14.1 g/dL (12.0-15.0); MCH 28.4 pg (27.0-32.0); MCHC 32.1 g/dL (32.0-37.0); MCV 88.5 fL (80.0-97.0); Mean Platelet Volume 13.3 fL (9.5-12.2); NRBC Per 100 WBC 0 /100 WBCS (0.0-0.0); Platelet Count 217 X 10*3/uL (140-440); RBC 4.96 X 10*6/uL (4.10-5.20); RDW 14.7 % (11.5-14.5); WBC 7.61 X 10*3/uL (4.50-10.00)
[2021-12-28 00:21] LABS: ALT 45 U/L (8-44); AST 24 U/L (13-35); African American GFR (CKD) 130.6 (60.0-200.0); Albumin 4.3 g/dL (3.8-4.9); Albumin/Globulin Ratio 1.67 (1.60-3.17); Alkaline Phosphatase 113 U/L (41-126); BUN/Creat Ratio 25.83 Ratio (12.00-20.00); Blood Urea Nitrogen 16.4 mg/dL (9.0-27.0); Calcium 9.6 mg/dL (8.7-10.3); Carbon Dioxide 21.6 mmol/L (20.0-27.5); Chloride 101 mmol/L (96-109); Globulin 2.6 g/dL (1.6-3.3); Glucose 83 mg/dL (70-110); Iron 51 ug/dL (50-170); Non-African American GFR(CKD) 112.7 (60.0-200.0); Potassium 4.2 mmol/L (3.5-5.5); Sodium 138 mmol/L (135-145); Total Bilirubin <0.15 mg/dL (0.30-1.20); Total Protein 6.9 g/dL (6.2-8.2)
== END ==
LOC: BARWHC3 13:22
PROVIDERS: ATTEND Surgery
DX: E66.01 Morbid (severe) obesity due to excess calories (principal); Z98.84 Bariatric surgery status; K90.89 Other intestinal malabsorption; E55.9 Vitamin D deficiency, unspecified; Z68.41 Body mass index [BMI] 40.0-44.9, adult; Z88.2 Allergy status to sulfonamides; Z88.8 Allergy status to other drugs, medicaments and biological substances
CPT/HCPCS: 80053; 82306; 82607; 82746; 83540; 84425; 85027; 97802; 99211

== ENCOUNTER → 2022-06-06 | Outpatient (CLI) | payer BC, OTHER ==
[2022-06-06 12:22] VITALS: BP 125/88; PULSE 80; TEMP 98; BMI 35.9
--- NOTE | 2022-06-06 12:28 | P.BASOAP ---
Subjective Progress Note Date: 06/06/22 Principal diagnosis: Morbid obesity 42-year-old female returns for reevaluation. Last seen in December. Underwent sleeve gastrectomy in October. Over the last few months the patient has had progressive reflux. This is usually every other day. She takes omeprazole 1-2 times daily as well as Tums at times. She also describes twice weekly episodes of vomiting. Usually occurs shortly after meals. No particular foods that cause this. Patient says she has emesis of the food that she just ate. No dysphagia. Patient is due for labs. Last visit had 1 month labs showing mild elevation of ALT and elevated 12. Patient still taking B12 supplements. Objective - Vital Signs Vital signs: Vital Signs Temp 98 F 06/06/22 12:16 Pulse 80 06/06/22 12:16 Resp BP 125/88 06/06/22 12:16 Pulse Ox FiO2 Intake & Output 06/05/22 06/06/22 06/06/22 18:59 06:59 18:59 Weight 97.976 kg - Exam Abdomen: Soft, nontender, nondistended Assessment/Plan (1) Morbid obesity Narrative/Plan: Patient with worsening reflux after sleeve gastrectomy in October. Will increase omeprazole to twice daily. Check 6 month labs at this time. Recommend holding supplemental B12 for now. Recheck 6-8 weeks. Plan: Date: 06/06/22 Initial Weight: 126.552 kg Initial BMI: 46.4 Current Weight: 97.976 kg Current BMI: 35.9 Type of Surgery: Total Volume in Band: Previous Volume: Volume Removed: Volume Added: Band Size:
[2022-06-06 18:28] LABS: HGB 14.9 g/dL (12.0-15.0); MCH 30.3 pg (27.0-32.0); MCHC 33.1 g/dL (32.0-37.0); MCV 91.6 fL (80.0-97.0); NRBC Per 100 WBC 0 /100 WBCS (0.0-0.0); Platelet Count 263 X 10*3/uL (140-440); RBC 4.91 X 10*6/uL (4.10-5.20); RDW 13.7 % (11.5-14.5); WBC 8.82 X 10*3/uL (4.50-10.00)
[2022-06-06 20:14] LABS: African American GFR (CKD) 125.6 (60.0-200.0); Albumin 4.5 g/dL (3.8-4.9); Albumin/Globulin Ratio 1.73 (1.60-3.17); Anion Gap 10.9 mmol/L (10.00-18.00); BUN/Creat Ratio 30.29 Ratio (12.00-20.00); Blood Urea Nitrogen 21.2 mg/dL (9.0-27.0); Calcium 9.9 mg/dL (8.7-10.3); Carbon Dioxide 24.1 mmol/L (20.0-27.5); Globulin 2.6 g/dL (1.6-3.3); Non-African American GFR(CKD) 108.4 (60.0-200.0); Potassium 4.5 mmol/L (3.5-5.5); Total Bilirubin 0.2 mg/dL (0.30-1.20); Total Protein 7.1 g/dL (6.2-8.2)
== END ==
LOC: BARWHC3 11:20
PROVIDERS: ATTEND Surgery
DX: Z71.3 Dietary counseling and surveillance (principal); E66.01 Morbid (severe) obesity due to excess calories; K90.89 Other intestinal malabsorption; E55.9 Vitamin D deficiency, unspecified; Z68.35 Body mass index [BMI] 35.0-35.9, adult; Z88.2 Allergy status to sulfonamides; Z88.8 Allergy status to other drugs, medicaments and biological substances
CPT/HCPCS: 80053; 82306; 82607; 82746; 83540; 84425; 85027; 97803; 99211

== ENCOUNTER → 2022-06-21 | Outpatient (CLI) | payer BC, OTHER ==
--- NOTE | 2022-06-21 08:11 | US ---
EXAMINATION TYPE: US gallbladder DATE OF EXAM: 06/21/2022 COMPARISON: NONE CLINICAL HISTORY: R10.13 RUQ PAIN. Epigastric pain for 2 months, nausea and vomiting TECHNIQUE: Multiple sonographic images of the right upper quadrant are obtained. FINDINGS: EXAM MEASUREMENTS: Liver Length: 14.0 cm Gallbladder Wall: 0.2 cm CBD: 0.6 cm Right Kidney: 10.4 x 4.7 x 4.8 cm POLLS OR SURVEYS INTERVIEWER NOTES:Technical limitations due to large amount of overlying bowel content Pancreas: Obscured by bowel gas Liver: slightly heterogeneous and increased echotexture. Gallbladder: multiple small stones Evidence for sonographic Payne's sign: no CBD: wnl Right Kidney: no evidence of hydronephrosis IMPRESSION: 1. No evidence for acute intra-abdominal process. 2. Cholelithiasis. 3. Mild hepatic steatosis.
== END | disposition home or self-care (01) ==
LOC: RADUSWWP 07:01
PROVIDERS: ATTEND Surgery
DX: K76.0 Fatty (change of) liver, not elsewhere classified (principal); K80.20 Calculus of gallbladder without cholecystitis without obstruction
CPT/HCPCS: 76705

== ENCOUNTER → 2022-06-29 | Outpatient (CLI) | payer BC, OTHER ==
[2022-06-29 13:09] VITALS: BP 134/88; PULSE 71; RESP 16; TEMP 98.1; BMI 35.2
--- NOTE | 2022-06-29 14:46 | P.BASOAP ---
Subjective Progress Note Date: 06/29/22 Principal diagnosis: Abdominal pain 42-year-old female underwent sleeve gastrectomy earlier this year. She has had multiple attacks of right upper quadrant pain over the last month. She went for ultrasound which shows gallstones. She had a CAT scan apparently performed at the ER in [place] that she says showed a small hernia. Symptoms usually begin with pain in her back that radiates to the right upper quadrant and then to the right collarbone. Symptoms typically last between 1 hours and 4 hours. Labs when evaluated in May showed normal liver enzymes. Objective - Vital Signs Vital signs: Vital Signs Temp 98.1 F 06/29/22 13:05 Pulse 71 06/29/22 13:05 Resp 16 06/29/22 13:05 BP 134/88 06/29/22 13:05 Pulse Ox FiO2 Intake & Output 06/28/22 06/29/22 06/29/22 18:59 06:59 18:59 Weight 96.162 kg - Exam Abdomen: Soft, mild right upper quadrant tenderness, no rebound or guarding Assessment/Plan (1) Chronic cholecystitis Narrative/Plan: 6-year-old female with chronic cholecystitis. Will proceed with laparoscopic, possible open cholecystectomy 07/03. Risks of bleeding, infection, bile leak, bile duct injury, retained common bile duct stone, trocar injury, conversion to an open procedure, hernia, anesthesia related complications were reviewed. The patient understands and wishes to proceed. Plan: Date: 06/29/22 Initial Weight: 126.552 kg Initial BMI: 46.4 Current Weight: 96.162 kg Current BMI: 35.2 Type of Surgery: Total Volume in Band: Previous Volume: Volume Removed: Volume Added: Band Size:
== END ==
LOC: BARWHC3 12:48
PROVIDERS: ATTEND Surgery
DX: K81.1 Chronic cholecystitis (principal); Z98.84 Bariatric surgery status; Z88.2 Allergy status to sulfonamides; Z88.8 Allergy status to other drugs, medicaments and biological substances
CPT/HCPCS: 99211

== ENCOUNTER → 2022-06-29 | Outpatient (CLI) | payer BC, OTHER ==
[2022-06-29 19:26] LABS: Basophils # (A) 0.06 X 10*3/uL (0.00-0.10); Basophils % (A) 0.9 %; Eosinophils # (A) 0.14 X 10*3/uL (0.04-0.35); Eosinophils % (A) 2.1 %; HCT 45.3 % (37.2-46.3); HGB 14.7 g/dL (12.0-15.0); Immature Grans, Automated 0.1 %; Lymphocytes # (A) 2.38 X 10*3/uL (0.90-5.00); Lymphocytes % (A) 35.7 %; MCH 30.4 pg (27.0-32.0); MCHC 32.5 g/dL (32.0-37.0); MCV 93.6 fL (80.0-97.0); Mean Platelet Volume 12.8 fL (9.5-12.2); Monocytes # (A) 0.58 X 10*3/uL (0.20-1.00); Monocytes % (A) 8.7 %; NRBC Per 100 WBC 0 /100 WBCS (0.0-0.0); Neutrophils % (A) 52.5 %; Platelet Count 246 X 10*3/uL (140-440); RBC 4.84 X 10*6/uL (4.10-5.20); RDW 13.2 % (11.5-14.5); WBC 6.67 X 10*3/uL (4.50-10.00)
[2022-06-29 23:20] LABS: African American GFR (CKD) 124.1 (60.0-200.0); Albumin 4.5 g/dL (3.8-4.9); Albumin/Globulin Ratio 1.8 (1.60-3.17); Anion Gap 10.3 mmol/L (10.00-18.00); BUN/Creat Ratio 29.7 Ratio (12.00-20.00); Calcium 9.9 mg/dL (8.7-10.3); Carbon Dioxide 25.1 mmol/L (20.0-27.5); Globulin 2.5 g/dL (1.6-3.3); Non-African American GFR(CKD) 107.1 (60.0-200.0); Potassium 4.8 mmol/L (3.5-5.5); Total Bilirubin 0.2 mg/dL (0.30-1.20); Total Protein 6.9 g/dL (6.2-8.2)
== END | disposition home or self-care (01) ==
LOC: LABPAT 13:33
PROVIDERS: ATTEND Surgery
DX: Z01.818 Encounter for other preprocedural examination (principal); R94.31 Abnormal electrocardiogram [ECG] [EKG]
CPT/HCPCS: 80053; 85025; 93005

== ENCOUNTER 2022-07-03 09:22 | Day surgery (SDC) | payer BC, OTHER ==
[2022-06-29 15:49] VITALS: BMI 34.9
[~2022-07-03 09:22] MED LIST changes: +ACETAMINOPHEN TAB 500 MG TAB PO PRN; -DEXAMETHASONE SOD PHOSPHATE 4 MG/ML 1 ML VIAL IV ONE; -ENOXAPARIN 40 MG/0.4 ML SYRINGE SQ PRN; +HEPARIN SODIUM,PORCINE/PF 5,000 UNIT/0.5 ML SYRINGE SQ PRN; -ONDANSETRON 4 MG/2 ML VIAL IVP ONE; -ceFAZolin 3 GM in SODIUM CHLORIDE 0.9% 100 ML IVPB PRN
[2022-07-03] MEDS ORDERED: LACTATED RINGERS 1,000 ML IV ONE ×2 (09:42→11:05)
[2022-07-03] MEDS ORDERED: DEXAMETHASONE SOD PHOSPHATE 4 MG/ML 1 ML VIAL IVP ONE (10:05)
[2022-07-03] MEDS ORDERED: BUPIVACAINE (PF) 0.25% 30 ML VIAL SQ ONE (10:13)
[2022-07-03] MEDS ORDERED: SUCCINYLCHOLINE CHLORIDE 200 MG/10 ML VIAL IV ONE (10:19)
[2022-07-03] MEDS ORDERED: GLYCOPYRROLATE 0.2 MG/ML 2 ML VIAL ONE (10:19)
[2022-07-03] MEDS ORDERED: PROPOFOL 10 MG/ML 20 ML VIAL IV ONE (10:19)
[2022-07-03] MEDS ORDERED: MIDAZOLAM 2 MG/2 ML VIAL ONE (10:19)
[2022-07-03] MEDS ORDERED: NEOSTIGMINE 1 MG/ML 10 ML VIAL ONE (10:19)
[2022-07-03] MEDS ORDERED: HYDROmorphone (PF) 1 MG/ML ONE (10:19)
[2022-07-03] MEDS ORDERED: fentaNYL (PF) 50 MCG/ML 2 ML AMP ONE (10:19)
[2022-07-03] MEDS ORDERED: LIDOCAINE 2% INJ 20 MG/ML (2 ML VIAL) ONE (10:19)
[2022-07-03] MEDS ORDERED: ROCURONIUM 10 MG/ML (5 ML VIAL) IV ONE (10:19)
[2022-07-03 11:38] VITALS: TEMP 97
--- NOTE | 2022-07-03 11:38 | P.OP ---
Date of Procedure: 07/03/22 Procedure(s) Performed: PREOPERATIVE DIAGNOSIS: Chronic cholecystitis POSTOPERATIVE DIAGNOSIS: Same PROCEDURE: Laparoscopic cholecystectomy SURGEON: Ata EBL: Minimal see anesthesia record ANESTHESIA: Gen. COMPLICATIONS: None OPERATIVE PROCEDURE: The patient was brought and placed on the operating room table in the supine position. The patient was placed under general anesthesia at that time. The abdomen was prepped and draped in the usual sterile fashion. A small vertical infraumbilical incision was made. The fascia was grasped with the Jadiel forceps. The fascia was retracted anteriorly. The Veress needle was advanced into the peritoneal cavity. The saline drop test was normal. Insufflation took place up to 15 mmHg. A 5 mm optical trocar was advanced and the peritoneal cavity. 2 additional 5 mm trochars were placed in the right upper quadrant under direct visualization. A 12 mm trocar was advanced into the epigastric incision site. The gallbladder was retracted superiorly and laterally. The peritoneum overlying the infundibulum was bluntly dissected. The patient's cystic duct was visualized. The junction between the cystic duct common and hepatic duct was identified. The critical view of safety was achieved after blunt dissection. The cystic duct was then divided after placement of 3 12 mm clips on the patient's side and one on the specimen side. The cystic artery was identified and clipped as well. A small vessel was seen along the gallbladder fossa and clipped as well. The gallbladder was then removed from the liver bed using electrocautery. The gallbladder was then removed from the epigastric trocar site with an Endo Catch bag. The gallbladder fossa was irrigated with saline. There was no evidence of any bleeding or biliary drainage seen. The fascia at the 12 millimeter site was closed using a [place]Raymond 0 Vicryl stitch. The trochars were then removed. The skin at all 4 sites was closed using a 4-0 Monocryl stitch. Skin glue was utilized on the incision sites. At the end of this procedure the sponge and needle counts were correct. DISPOSITION: Stable to the recovery room
[2022-07-03] MEDS: HYDROmorphone 0.5 MG/0.5 ML SYRINGE IVP ONE ×2 (11:54→12:04)
[2022-07-03] MEDS ORDERED: ACETAMINOPHEN TAB 325 MG TAB PO SCH (12:00)
[2022-07-03 13:43] VITALS: BP 109/77; PULSE 59; RESP 16
[2022-07-03] MEDS ORDERED: IBUPROFEN 600 MG TAB PO SCH (14:30)
== END 2022-07-03 14:02 | disposition home or self-care (01) ==
LOC: OR 09:22
PROVIDERS: ATTEND Surgery
DX: K80.10 Calculus of gallbladder with chronic cholecystitis without obstruction (principal); J45.909 Unspecified asthma, uncomplicated; M19.90 Unspecified osteoarthritis, unspecified site; K21.9 Gastro-esophageal reflux disease without esophagitis; Z90.710 Acquired absence of both cervix and uterus; Z88.2 Allergy status to sulfonamides; Z88.8 Allergy status to other drugs, medicaments and biological substances; Z98.890 Other specified postprocedural states; Z79.899 Other long term (current) drug therapy
CPT/HCPCS: 88304; 47562; J2250; J0330; J1100; J2710; J0690; J3010; J1170 ×2; J2704; J1644; J2001

== ENCOUNTER → 2022-07-11 | Outpatient (CLI) | payer BC, OTHER ==
[2022-07-11 15:31] VITALS: BP 138/94; PULSE 66; RESP 16; TEMP 98; BMI 34.9
--- NOTE | 2022-07-11 15:44 | P.BASOAP ---
Subjective Progress Note Date: 07/11/22 Principal diagnosis: Morbid obesity Patient returns after her laparoscopic cholecystectomy last week. Doing well. Dashawn went back to work the following day. No nausea or vomiting. She has lost 2 pounds since her last visit here. The right-sided pain is gone. Objective - Vital Signs Vital signs: Vital Signs Temp 98 F 07/11/22 15:29 Pulse 66 07/11/22 15:29 Resp 16 07/11/22 15:29 BP 138/94 07/11/22 15:29 Pulse Ox FiO2 Intake & Output 07/10/22 07/11/22 07/11/22 18:59 06:59 18:59 Weight 95.254 kg - Exam Abdomen: Soft, nontender, nondistended Assessment/Plan (1) Chronic cholecystitis Narrative/Plan: Patient doing well after cholecystectomy 1 week ago. Continue low-fat foods. Continue light lifting. Recheck 2 months. Plan: Date: 07/11/22 Initial Weight: 126.552 kg Initial BMI: 46.4 Current Weight: 95.254 kg Current BMI: 34.9 Type of Surgery: Vertical Sleeve Gastrectomy Total Volume in Band: Previous Volume: Volume Removed: Volume Added: Band Size:
== END ==
LOC: BARWHC3 14:58
PROVIDERS: ATTEND Surgery
DX: E66.01 Morbid (severe) obesity due to excess calories (principal); Z68.34 Body mass index [BMI] 34.0-34.9, adult; K81.1 Chronic cholecystitis; Z88.2 Allergy status to sulfonamides; Z88.8 Allergy status to other drugs, medicaments and biological substances; Z90.49 Acquired absence of other specified parts of digestive tract
CPT/HCPCS: 99211

== ENCOUNTER → 2023-05-22 | Outpatient (CLI) | payer BC, OTHER ==
[2023-05-22 14:24] VITALS: BP 148/98; PULSE 73; RESP 16; TEMP 98; BMI 34.2
--- NOTE | 2023-05-22 14:27 | P.BASOAP ---
Subjective Progress Note Date: 05/22/23 Principal diagnosis: Morbid obesity Patient returns for recheck. Last seen in June. Underwent sleeve gastrectomy last October. She has lost 4 pounds since her last visit. Still having reflux symptoms at times. Takes omeprazole twice daily along with Tums. No vomiting. She says it feels tight swallowing sometimes. Objective - Vital Signs Vital signs: Vital Signs Temp 98 F 05/22/23 14:04 Pulse 73 05/22/23 14:04 Resp 16 05/22/23 14:04 BP 148/98 05/22/23 14:04 Pulse Ox FiO2 Intake & Output 05/21/23 05/22/23 05/22/23 18:59 06:59 18:59 Weight 93.44 kg - Exam Abdomen: Soft, nontender, nondistended Assessment/Plan (1) GERD (gastroesophageal reflux disease) Narrative/Plan: Patient with chronic reflux since her sleeve yesterday. Symptoms may be slightly worse now. Continue antiacids. Will plan EGD to evaluate for esophagitis or hiatal hernia. Plan: Date: 05/22/23 Initial Weight: 126.552 kg Initial BMI: 46.4 Current Weight: 93.44 kg Current BMI: 34.2 Type of Surgery: Vertical Sleeve Gastrectomy Total Volume in Band: Previous Volume: Volume Removed: Volume Added: Band Size:
== END ==
LOC: BARWHC3 13:59
PROVIDERS: ATTEND Surgery
DX: E66.01 Morbid (severe) obesity due to excess calories (principal); K21.9 Gastro-esophageal reflux disease without esophagitis; Z79.51 Long term (current) use of inhaled steroids; Z88.2 Allergy status to sulfonamides
CPT/HCPCS: 99211

== ENCOUNTER → 2024-07-31 | Outpatient (CLI) | payer BC | END | disposition home or self-care (01) | LOC: LABPAT 14:00 | PROVIDERS: ATTEND Orthopaedic Surgery | DX: M17.12 Unilateral primary osteoarthritis, left knee (principal); Z22.322 Carrier or suspected carrier of Methicillin resistant Staphylococcus aureus | CPT/HCPCS: 87070 ==

== ENCOUNTER 2024-08-05 08:37 | Day surgery (SDC) | payer BC, OTHER ==
[2024-07-31 11:00] VITALS: BMI 41.6
--- NOTE | 2024-08-04 08:38 | P.HPOR ---
History of Present Illness H&P Date: 08/04/24 Chief Complaint: Left knee pain The patient is a 44-year-old female who presents with progressive left knee pain for the past couple of years worsening recently. She is having diffuse pain with weightbearing activities. She has intermittent locking and giving way. She is having night symptoms. She has tried medications along with injections without much relief. She had a previous arthroscopy. Review of Systems Per HPI Past Medical History Past Medical History: Asthma, GERD/Reflux, Osteoarthritis (OA) Additional Past Medical History / Comment(s): STRESS INDUCED ASTHMA since a teenager History of Any Multi-Drug Resistant Organisms: None Reported Past Surgical History: Bariatric Surgery, Hysterectomy Additional Past Surgical History / Comment(s): bilateral legs surgery for hyper flexation of the joints , knee scopes, removal of right end of clavical, removal of cyst right wrist, sleeve gastrectomy 10-31-21, below the knee surgeries, Removal tibial screws, wrist and clavicle surgery. Past Anesthesia/Blood Transfusion Reactions: No Reported Reaction Smoking Status: Never smoker - Past Family History Mother Family Medical History: No Reported History Father Family Medical History: Hypertension Medications and Allergies Home Medications Medication Instructions Recorded Confirmed Type Venlafaxine HCl ER [Effexor XR] 37.5 mg PO DAILY 02/16/20 07/31/24 History Ergocalciferol [Vitamin D2 (1250 50,000 unit PO DU 01/07/21 07/31/24 History Mcg = 40214 Iu)] Albuterol Inhaler [Ventolin Hfa 1 - 2 puff INHALATION RT-TID PRN 03/03/21 07/31/24 History Inhaler] Acetaminophen Tab [Tylenol] 1,000 mg PO Q6HR PRN #30 tablet 11/02/21 07/31/24 Rx Omeprazole [PriLOSEC] 40 mg PO DAILY #30 cap 11/02/21 07/31/24 Rx Allergies Allergy/AdvReac Type Severity Reaction Status Date / Time ondansetron [From Zofran] Allergy Rash/Hives Verified 07/31/24 10:51 Sulfa (Sulfonamide Allergy Unknown Verified 07/31/24 10:51 Antibiotics) Childhood Physical Examination - Knee left Appearance: effusion Effusion grade: grade 2 Valgus alignment in stance: 10 degrees Tenderness with palpation: anterior, lateral Pain: throughout ROM Gait: limping ROM: extension: -10 degrees ROM: flexion: 110 degrees Crepitus with motion: Yes Strength: extension: 5/5 Strength: flexion: 5/5 Meniscal tests: lateral meniscal tests: positive, lateral joint line pain: positive Results The patient is a well-developed well-nourished female approximately 5 foot 3, 220 pounds of endomorphic habitus. HEENT exam is nonfocal, neck is supple. She has painless passive motion of the left hip. Straight leg raise is negative. She is tender about the anterior and lateral joint line of the left knee. Col laterals are stable, Khari's negative, Sasha's is equivocal. She has genu valgum alignment. Her distal neurovascular exam appears intact in the left lower extremity. - Diagnostic results Knee x-ray: image reviewed (X-rays of the left knee obtained the office show severe lateral and patellofemoral compartment osteoarthrosis with [id number] changes along with subchondral sclerosis.) Assessment and Plan Assessment: Left knee severe lateral and patellofemoral compartment osteoarthrosis Obesity Plan: I talked to the patient at length regarding her condition along with treatment options. At this point she is having significant pain and mechanical symptoms related to her left knee osteoarthrosis despite conservative measures. After a thorough discussion she opts to proceed with surgery. We will plan to proceed with left total knee arthroplasty. Risks and benefits were discussed at length in layman's terms. We will institute DVT prophylaxis postoperatively.
[~2024-08-05 08:37] MED LIST changes: -ACETAMINOPHEN TAB 500 MG TAB PO PRN; -HEPARIN SODIUM,PORCINE/PF 5,000 UNIT/0.5 ML SYRINGE SQ PRN; +LIDOCAINE 1% (10MG/ML) FOR IV START INTRADERMA PRN; +ONDANSETRON 4 MG/2 ML VIAL IVP PRN; +TRANEXAMIC 1,000 MG/100ML-NACL 1,000 MG in SALINE 1 100ML.BAG IVPB PRN
[2024-08-05] MEDS: IV FLUID CONTINUATION 1,000 ML IV ONE ×2 (09:11→11:10)
[2024-08-05] MEDS: LACTATED RINGERS 1,000 ML IV SCH (09:25)
[2024-08-05] MEDS: DEXAMETHASONE SOD PHOSPHATE 4 MG/ML 1 ML VIAL IV ONE (09:25)
[2024-08-05] MEDS: ACETAMINOPHEN TAB 500 MG TAB PO PRN (09:25)
[2024-08-05] MEDS: MELOXICAM 7.5 MG TAB PO PRN (09:25)
[2024-08-05] MEDS: MIDAZOLAM 2 MG/2 ML VIAL IV ONE (09:28)
[2024-08-05] MEDS: fentaNYL (PF) 50 MCG/ML 2 ML AMP IVP PRN (09:29)
[2024-08-05] MEDS ORDERED: MIDAZOLAM 2 MG/2 ML VIAL ONE (09:44)
[2024-08-05] MEDS ORDERED: ROPIVACAINE 5 MG/ML 30 ML VIAL ONE (09:44)
[2024-08-05] MEDS ORDERED: SODIUM CHLORIDE 0.9% (PF) 10 ML VIAL ONE (09:44)
[2024-08-05] MEDS ORDERED: DEXAMETHASONE SOD PHOSPHATE 4 MG/ML 1 ML VIAL ONE (09:44)
[2024-08-05] MEDS ORDERED: TRANEXAMIC 1,000 MG/100ML-NACL PREMIX BAG ONE (09:44)
[2024-08-05] MEDS ORDERED: PHENYLEPHRINE-0.9% NACL SYG 1,000 MCG/10 ML SYRINGE ONE (09:44)
[2024-08-05] MEDS ORDERED: GLYCOPYRROLATE 0.2 MG/ML 2 ML VIAL ONE (09:44)
[2024-08-05] MEDS ORDERED: fentaNYL (PF) 50 MCG/ML 2 ML AMP ONE (09:44)
[2024-08-05] MEDS ORDERED: PROPOFOL 10 MG/ML 20 ML VIAL IV ONE (09:44)
--- NOTE | 2024-08-05 10:05 | P.ANPRN ---
Procedure Note - Anesthesia - Nerve Block Performed Left Adductor Canal Infusion Time Out Performed: Yes Date of Procedure: 08/05/24 Procedure Start Time: : Procedure Stop Time: :37 Location of Patient: PreOp Indication: Acute Post-Operative Pain, Requested by Surgeon Sedation Type: Sedate with meaningful contact maintained Preparation: Sterile Prep Position: Supine Catheter: Indwelling Needle Types: Pajunk Needle Gauge: 18 Ultrasound used to visualize needle placement: Yes Ultrasound used to observe medication spread: Yes Injectate: 0.5% Ropivacaine (see comment for volume) (20 ml + 10 ml NS + 4 mg Dexamethasone) Blood Aspirated: No Pain Paresthesia on Injection Noted: No Resistance on Injection: Normal Image Stored and Saved: Yes Events: Uneventful and Well Tolerated
--- NOTE | 2024-08-05 10:06 | P.ANPRN ---
Procedure Note - Anesthesia - Nerve Block Performed Left iPack Single Time Out Performed: Yes Date of Procedure: 08/05/24 Procedure Start Time: 09:37 Procedure Stop Time: :45 Location of Patient: PreOp Indication: Acute Post-Operative Pain, Requested by Surgeon Sedation Type: Sedate with meaningful contact maintained Preparation: Sterile Prep Position: Right Lateral Needle Types: Pajunk Needle Gauge: 21 Ultrasound used to visualize needle placement: Yes Ultrasound used to observe medication spread: Yes Injectate: 0.5% Ropivacaine (see comment for volume) (20 ml + 10 ml NS +4 mg Dexamethasone) Blood Aspirated: No Pain Paresthesia on Injection Noted: No Resistance on Injection: Normal Image Stored and Saved: Yes Events: Uneventful and Well Tolerated
[2024-08-05] MEDS ORDERED: ONDANSETRON 4 MG/2 ML VIAL IVP PRN (11:29)
[2024-08-05] MEDS ORDERED: hydrOXYzine pamoate 25 MG CAP PO PRN (11:29)
[2024-08-05] MEDS ORDERED: MAGNESIUM HYDROXIDE 2,400 MG/30 ML CUP PO PRN (11:29)
[2024-08-05] MEDS ORDERED: NALOXONE 0.4 MG/ML 1 ML VIAL IV PRN (11:29)
--- NOTE | 2024-08-05 11:49 | P.OP ---
Date of Procedure: 08/05/24 Preoperative Diagnosis: Left knee severe tricompartmental osteoarthrosis Postoperative Diagnosis: Same Procedure(s) Performed: Left total knee arthroplastycementedposterior stabilized Implants: DePuy attune size 5 narrow cemented femoral component, size 4 cemented tibial component with a 14 x 50 mm tibial stem, 9 mm articular surface, 35 mm cemented patellar component. This is a posterior stabilized implant. Anesthesia: regional, spinal Surgeon: Sohail Eason Washroom Cleaner #1: Oumar Suggs Estimated Blood Loss (ml): 50 Pathology: none sent Condition: stable Disposition: PACU Indications for Procedure: The patient is a 44-year-old female who presents with progressive left knee pain secondary to osteoarthrosis despite conservative measures. She had undergone multiple previous operative procedures. A discussion of the risks and benefits of operative intervention versus continued conservative measures was made with the patient. She opted to proceed with surgery. Operative risks include infection, neurovascular injury, development of blood clots, fracture, possible component loosening/failure and possible need for subsequent procedures was discussed. Informed consent was obtained. Operative Findings: As below Description of Procedure: The patient was brought to the operating room, and after induction of spinal anesthesia the left lower extremity was prepped and draped in a normal fashion. The tourniquet was inflated to 270 mm marker. A longitudinal incision extending 3 finger breaths above the superior pole of patella extending to the medial aspect the tibial tubercle was then made. The skin and subcutaneous tissues were divided sharply. Electrocautery was used for hemostasis. A medial parapatellar arthrotomy was performed. The medial soft tissues to include the superficial and deep portions of the medial collateral ligament were elevated subperiosteally. The patella was everted. A portion of the retropatellar fat pad was excised sharply. The anterior cruciate ligament was sacrificed. Blunt retractors were placed. A starting hole was made in the distal femur 1 cm anterior to the posterior cruciate ligament origin. An intramedullary femoral guide was then inserted planning on 5 valgus distal cut with 9 mm distal resection. The cutting block was pinned in place. The distal cut was then made. The posterior referencing sizing guide was utilized. I felt size 5 narrow was most appropriate. 3 of external rotation was built into the system and verified off the trans-epicondylar axis and the posterior condyles. The cutting block was pinned in place. The anterior, posterior, and chamfer cuts then made. Bone fragments were removed. The intercondylar guide was placed and the notch cut was made with a sagittal saw. The bone block was removed in one fragment. The trial component was then placed. There is good anterior to posterior and medial to lateral fit. The distal peg holes were drilled. The trial component was removed. Attention was then paid towards preparing the proximal tibia. An extra medullary guide was utilized in line with the tibial shaft and second metatarsal distally. I planned on 6 mm resection from the medial compartment. The cutting block was pinned in place. The proximal tibial cut was then made. The bone was removed in one fragment. The remnants of the medial and lateral menisci were excised at the capsular junction with electrocautery. The tibia sized most appropriately at size 4. The trial femoral and tibial components were placed along with a 9 mm articular surface. I was able to obtain full flexion and extension with internal and external rotation. After several flexion and extension cycles, the tibial rotation was marked with electrocautery line with the medial one third of the tibial tubercle. Attention was then paid towards preparing the patella. A patella reamer was utilized taking stem to 14 mm of bone stock. A good flush cut was made. The patella sized most appropriately 35 mm. The peg holes were drilled. The trial components placed. I had good patellofemoral tracking with no hands technique. The trial components were then removed. The tibia was prepared in the appropriate rotation with appropriate drill and keel punch planning on a 14 x 50 mm tibial stem extension. The posterior osteophytes were removed with a curved osteotome. The flexion and extension gaps were checked and felt to be symmetric at 9 mm. A trial components were then removed. The bony surfaces were prepared with pulsatile lavage and dried. The tibial component was then cemented place was fully seated. Excess cement was removed. The femoral component cemented place and was fully seated. Excess cement was removed. The trial 9 mm articular surface was placed and the knee was put in full extension. The patella component was cemented place. After the cement had sufficiently hardened, the knee was again taken through a range of motion. Again I was able to obtain full flexion and extension with varus and valgus stress. The trial 9 mm articular surface was removed and the final one inserted. This was fully seated. Care was taken to avoid any soft tissue interposition. Pulsatile lavage was again utilized. The medial parapatellar arthrotomy was closed with #2 Ethibond suture. The tourniquet was deflated with approximately 60 minutes total tourniquet time. Final hemostasis was obtained with the cautery. There was minimal bleeding therefore a deep drain was not placed. The subcutaneous tissues were reapproximated with interrupted 2-0 Vicryl sutures. The skin was reapproximated with 3-0 subcuticular strata fix suture. Skin tape and adhesive was applied. A sterile dressing was applied. The patient was awoken from sedation and transferred to recovery room in good condition. Blood loss was estimated at 50 mL. No complications were incurred. Sponge and needle counts were correct at the end of the case. Oumar MAR assisted during the major components of this case to include exposure, bone resection, implantation, and closure.
[2024-08-05] MEDS: ROPIVACAINE 1,100 MG, SODIUM CHLORIDE 0.9% 500 ML 330 ML, EMPTY PAIN BALL 1 EACH MISCELLANE PRN (12:19)
--- NOTE | 2024-08-05 12:39 | XR ---
EXAMINATION TYPE: XR knee limited LT DATE OF EXAM: 08/05/2024 COMPARISON: NONE CLINICAL INDICATION: Female, 44 years old with history of Evaluation for Postop abnormality and align ment; TECHNIQUE: Two views submitted FINDINGS: There is a prosthetic knee in near anatomic alignment. There is soft tissue edema and soft tissue a ir emphysema. IMPRESSION: 1. Postoperative change. [facility], , 08/05/2024 12:37 PM
[2024-08-05] MEDS: HYDROmorphone 0.5 MG/0.5 ML SYRINGE IVP PRN ×2 (14:27→17:43)
[2024-08-05] MEDS: droPERidol 5 MG/2 ML VIAL IVP ONE (15:22)
[2024-08-05] MEDS: HYDROcodone/APAP 5-325MG 1 EACH TAB PO PRN (15:27)
[2024-08-05] MEDS ORDERED: ALBUTEROL NEBULIZED 2.5 MG/3 ML INHALATION PRN (15:33)
[2024-08-05] MEDS: ALBUTEROL NEBULIZED 2.5 MG/3 ML INHALATION SCH (20:57)
[2024-08-05] MEDS: SENNOSIDES-DOCUSATE SODIUM 1 EACH TAB PO SCH (21:52)
[2024-08-05] MEDS: HYDROcodone/APAP 7.5-325MG 1 EACH TAB PO PRN (23:40)
--- NOTE | 2024-08-06 02:35 | CONS ---
CONSULTATION REASON FOR CONSULTATION: Regarding the asthma and other medical issues, requested by surgery. HISTORY OF PRESENT ILLNESS: This is a 44-year-old woman with a past medical history of asthma, GERD, underwent left total knee arthroplasty for severe DJD. There is no history of fever, rigors _no headache, loss of consciousness. PAST MEDICAL HISTORY: Asthma, GERD, DJD. Rest of the chart is also reviewed. HOME MEDICATIONS: Reviewed include Effexor XR, dose and rest of medications reviewed. ALLERGIES: Zofran. FAMILY HISTORY: Hypertension. SOCIAL HISTORY: No history of smoking, occasional alcohol. REVIEW OF SYSTEMS: Fourteen-point review is negative except as mentioned earlier. PHYSICAL EXAM: VITAL SIGNS: Pulse is 81, blood pressure 121/78, respirations 16. HEENT: Conjunctivae normal. CARDIOVASCULAR: S1-S2. RESPIRATIONS: A few scattered rhonchi. ABDOMEN: Soft status post left knee arthroplasty. NERVOUS SYSTEM: Nonfocal. LABORATORY DATA: Preop labs are reviewed, within normal limits. ASSESSMENT: 1. Status post left total knee arthroplasty for severe degenerative joint disease. 2. History of asthma. 3. Gastroesophageal reflux disease. 4. Degenerative joint disease. 5. History of bariatric surgery. RECOMMENDATION: This 44-year-old woman presented after surgery. At this time, I recommend to continue current incentive spirometry, DVT prophylaxis. Otherwise, resume the home medications. We will follow the patient closely with you. MMODL / IJN: [id number] / MTDD
--- NOTE | 2024-08-06 06:45 | P.PN ---
Progress Note - Text Progress Note Date: 08/06/24 Postoperative day # 1 status post total knee arthroplasty, and adductor canal catheter placed for postoperative analgesia, currently at ropivacaine 0.2% 8 mL per hour and continuous infusion, visual analogue scale is 3-4/10, patient using oral pain medication for breakthrough pain. Assessment and plan= Acute postoperative pain, adductor canal catheter for pain control, pain is well controlled we'll continue the same management.
[2024-08-06] MEDS: VENLAFAXINE HCL ER 37.5 MG CAP PO SCH (07:39)
[2024-08-06] MEDS: RIVAROXABAN 10 MG TAB PO SCH (07:39)
[2024-08-06] MEDS: HYDROmorphone 1 MG/ML 1 ML SYRINGE IVP PRN (07:40)
[2024-08-06] MEDS: PANTOPRAZOLE 40 MG TABLET PO SCH (07:40)
[2024-08-06 08:11] VITALS: BP 112/73; TEMP 97.9
[2024-08-06 08:31] LABS: Basophils # (A) 0.02 X 10*3/uL (0.00-0.10); Basophils % (A) 0.2 %; Eosinophils # (A) 0.01 X 10*3/uL (0.04-0.35); Eosinophils % (A) 0.1 %; HCT 36.7 % (37.2-46.3); HGB 12.3 g/dL (12.0-15.0); Lymphocytes # (A) 1.15 X 10*3/uL (0.90-5.00); Lymphocytes % (A) 9.1 %; MCH 30.6 pg (27.0-32.0); MCHC 33.5 g/dL (32.0-37.0); MCV 91.3 FL (80.0-97.0); Mean Platelet Volume 12.2 FL (9.5-12.2); Monocytes # (A) 0.77 X 10*3/uL (0.20-1.00); Monocytes % (A) 6.1 %; NRBC Per 100 WBC 0 X 10*3/uL (0.00-0.01); Neutrophils # (A) 10.58 X 10*3/uL (1.80-7.70); Neutrophils % (A) 84.2 %; Platelet Count 221 X 10*3/uL (140-440); RBC 4.02 X 10*6/uL (4.10-5.20); RDW 13.1 % (11.5-14.5); WBC 12.57 X 10*3/uL (4.50-10.00)
[2024-08-06 09:21] VITALS: RESP 16
[2024-08-06 09:32] VITALS: PULSE 72
--- NOTE | 2024-08-06 11:34 | P.PN ---
Subjective Progress Note Date: 08/06/24 Principal diagnosis: Status post left total knee arthroplasty Patient evaluated at bedside, is present also. Patient is doing very well at this time. She did very well with physical therapy ambulating with walker. Her pain is well-controlled currently. She is urinating with no issues. She denies headaches, headedness, chest pain or shortness of breath Objective - Vital Signs Vital signs: Vital Signs Temp 97.9 F 08/06/24 07:14 Pulse 72 08/06/24 09:32 Resp 16 08/06/24 09:32 BP 112/73 08/06/24 07:14 Pulse Ox 98 08/06/24 07:14 FiO2 Intake & Output 08/05/24 08/06/24 08/06/24 18:59 06:59 18:59 Intake Total 350 1620 Output Total 50 Balance 300 1620 Weight 104.4 kg Intake: IV 350 Oral 1620 Output: Estimated Blood Loss 50 Other: # Voids 1 4 - Exam Left lower extremity: Incision is clean, dry, and intact. The exofin fusion tape is in good condition. There is minimal soft tissue swelling and ecchymosis surrounding the medial and lateral aspects of the incision. Calf is soft, no tenderness with palpation. Plantar flexion, dorsiflexion, EHL, FHL are intact. Sensory exam to light touch throughout the extremity is intact, dorsal pedis pulses 2+. - Labs CBC & Chem 7: 08/06/24 02:51 Labs: Abnormal Lab Results - Last 24 Hours (Table) 08/06/24 Range/Units 02:51 WBC 12.57 H (4.50-10.00) X 10*3/uL RBC 4.02 L (4.10-5.20) X 10*6/uL Hct 36.7 L (37.2-46.3) % Neutrophils # 10.58 H (1.80-7.70) X 10*3/uL Eosinophils # 0.01 L (0.04-0.35) X 10*3/uL Assessment and Plan Assessment: Postoperative day #1 status post left total knee arthroplasty Plan: Pain control, plan for discharge home on [place] 7.5 mg / 325 mg. Will also discharge on stool softeners DVT prophylaxis, Eliquis 2.5 mg for 2 weeks Wound care instructions discussed, this to include icing and elevating, bandage instructions and showering Home PT/nursing after discharge Medical recommendations appreciated Discharge planning: Patient stable for discharge home today Time with Patient: Less than 30
--- NOTE | 2024-08-06 11:36 | P.DS ---
Providers Date of admission: 08/05/2024 Expected date of discharge: 08/06/24 Attending physician: Sohail Eason Consults: 08/05/24 11:29 Consult Physician Routine Consulting Provider: Sujatha Mcleod Consult Reason/Comments: medical management s/p left total knee arthroplasty Do you want consulting provider notified?: Yes Primary care physician: Roxana Sarah Hospital Course: Date of admission: 08/05/2024 Date of discharge: 08/06/2024 Admission diagnosis: Status post left total knee arthroplasty Discharge diagnosis: Same Attending physician: Dr. Eason Surgical procedures: Left total knee arthroplasty Brief history: Patient is a 44-year-old female with a history of progressive primary left knee osteoarthritis. At this point patient has failed conservative treatment measures and has opted to proceed with a elective left total knee arthroplasty. Hospital course: Details of patient's surgery can be found in operative report. Patient tolerated the procedure well and was subsequently transported to orthopedic floor. Patient's orthopeidc and medical care was provided daily. Patient had daily laboratory tests performed for evaluation of overall blood counts. Patient had daily physical therapy to include strengthening range of motion as well as education with walker ambulation. Patient was treated with Xarelto for their postoperative DVT prophylaxis during their inpatient stay. Patient was noted to have a relatively uneventful postoperative course. Patient reported satisfactory pain control with oral pain medications by postoperative day 1. Patient showed satisfactory progress with physical therapy. Patient moved steadily through the program and had no difficulty meeting the goals by postoperative day 1. Given patient's otherwise satisfactory course and having met physical therapy goals, plan is to discharge patient home on postoperative day 1. Discharge condition/disposition: Patient will be discharged home in stable condition. Discharge medications: Instructions are given on resumption of patient's normal daily medications per primary care recommendation, in addition patient will be prescribed Coggon 7.5 mg / 325 mg, senna S, Eliquis 2.5 mg. Discharge instructions: 1. Wound care and infection precautions, keep incision dry and covered while showering, no lotions, creams, moisturizers. No soaking, tubs, pools, hottubs. Do not scrub over the incision. 2. Weight-bear as tolerated with walker / cane until follow-up. 3. Ice and elevate when necessary. Do not exceed 20 minutes per hour with ice pack. 4. Utilize compression sleeve until seen at first follow up appointment. 5. Visiting nursing care. 6. Home physical therapy including home CPM. 7. Pain meds and anticoagulants per prescription. 8. Pain medication has potential to cause constipation. Increase oral fluid and fiber intake. Contact primary care provider if you have not had a bowel movement within 48 hours after discharge 9. No anti-inflammatory medication until discussed at first post operative visit, this including Motrin, Aleve, Mobic, Diclofenac. 10. Follow up in office at 2 weeks postop with Woody Lin PA-C/Oumar Ambrocio 11. Follow up with your primary care doctor 7-10 days after discharge. 12. Contact [facility] with any questions, . Procedures: Left total knee arthroplasty Patient Condition at Discharge: Good Plan - Discharge Summary Discharge Rx Participant: Yes New Discharge Prescriptions: New Sennosides/Docusate Sodium [Senna-S 8.6-50 mg Tablet] 2 each PO DAILY PRN #30 tablet PRN Reason: Constipation Apixaban [Eliquis] 2.5 mg PO BID #60 tab HYDROcodone/APAP 7.5-325MG [Coggon 7.5] 1 each PO Q4HR PRN #42 tab PRN Reason: Pain No Action Venlafaxine HCl ER [Effexor XR] 37.5 mg PO DAILY Albuterol Inhaler [Ventolin Hfa Inhaler] 1 - 2 puff INHALATION RT-TID PRN PRN Reason: Shortness Of Breath Or Wheezing Omeprazole [PriLOSEC] 40 mg PO DAILY #30 cap Ergocalciferol [Vitamin D2 (1250 Mcg = 46624 Iu)] 50,000 unit PO DU Acetaminophen Tab [Tylenol] 1,000 mg PO Q6HR PRN #30 tablet PRN Reason: Pain Discharge Medication List Venlafaxine HCl ER [Effexor XR] 37.5 mg PO DAILY 02/16/20 [History] Ergocalciferol [Vitamin D2 (1250 Mcg = 68607 Iu)] 50,000 unit PO DU 01/07/21 [History] Albuterol Inhaler [Ventolin Hfa Inhaler] 1 - 2 puff INHALATION RT-TID PRN 03/03/21 [History] Acetaminophen Tab [Tylenol] 1,000 mg PO Q6HR PRN #30 tablet 11/02/21 [Rx] Omeprazole [PriLOSEC] 40 mg PO DAILY #30 cap 11/02/21 [Rx] Apixaban [Eliquis] 2.5 mg PO BID #60 tab 08/06/24 [Rx] HYDROcodone/APAP 7.5-325MG [Coggon 7.5] 1 each PO Q4HR PRN #42 tab 08/06/24 [Rx] Sennosides/Docusate Sodium [Senna-S 8.6-50 mg Tablet] 2 each PO DAILY PRN #30 tablet 08/06/24 [Rx] Follow up Appointment(s)/Referral(s): Oumar Suggs, PAC [PHYSICIAN DOGMAN/WOMAN] - 08/20/24 11:10 am [facility],Equipment [NON-STAFF] - As Needed (Continuous Passive Motion knee machine) [facility] Visiting Nurse, [NON-STAFF] - As Needed Patient Instructions/Handouts: Knee Replacement (GEN) Activity/Diet/Wound Care/Special Instructions: Orthopedic Discharge Instructions: 1. Wound care and infection precautions, keep incision dry and covered while showering, no lotions, creams, moisturizers. No soaking, pools, hot tubs. Do not scrub over incision. 2. Weight-bear as tolerated with walker / cane until follow-up. 3. Ice and elevate when necessary. Do not exceed 20 minutes per hour with ice pack. 4. Utilize compression sleeve until seen at first follow up appointment. 5. Pain meds and anticoagulants per prescription. 6. Pain medication has potential to cause constipation. Increase oral fluid and fiber intake. Contact primary care provider if you have not had a bowel movement within 48 hours after discharge. 7. No anti-inflammatory medication until discussed at first post operative visit, this including Motrin, Aleve, Mobic, Diclofenac. 8. Follow up in office at 2 weeks postop with Woody Lin PA-C / Oumar Suggs PA-C 9. Follow up with your primary care doctor 7-10 days after discharge. 10. Contact [facility] with any questions, . Keep incision clean, dry contact. While showering, cover fusion tape with Saran wrap. Keep fusion tape on until follow-up appointment in office in 2 weeks Discharge Disposition: HOME WITH HOME HEALTH SERVICES
--- NOTE | 2024-08-07 00:02 | PN ---
PROGRESS NOTE DATE OF SERVICE: 08/06/2024 SUBJECTIVE: This is a 44-year-old woman who was admitted after a knee joint surgery, is improving significantly. No chest pain. No palpitation. OBJECTIVE: VITAL SIGNS: Pulse is 72, blood pressure 112/73, respirations 19. CHEST: Clear to auscultation. CARDIOVASCULAR: S1, S2. ABDOMEN: Soft. KNEE: Status post surgery. LABORATORY DATA: Noted. ASSESSMENT: 1. Status post left total knee arthroplasty for severe degenerative joint disease. 2. History of asthma. 3. Gastroesophageal reflux disease. 4. Degenerative joint disease. 5. History of bariatric surgery. RECOMMENDATIONS AND DISCUSSION: I recommend to continue current management and continue symptomatic treatment. Follow up labs and further follow up with primary physician. Rest of the recommendations per Surgery. Further recommendations to follow. MMODL / IJN: [id number] /
== END 2024-08-06 12:58 | disposition home health service (06) ==
LOC: OR 08:37 → 4SSUR 11:47 → OR 08-06 12:58
PROVIDERS: ATTEND Orthopaedic Surgery
DX: M17.12 Unilateral primary osteoarthritis, left knee (principal); G89.18 Other acute postprocedural pain; J45.909 Unspecified asthma, uncomplicated; Z88.1 Allergy status to other antibiotic agents; Z88.2 Allergy status to sulfonamides; Z88.8 Allergy status to other drugs, medicaments and biological substances; Z79.51 Long term (current) use of inhaled steroids; Z79.01 Long term (current) use of anticoagulants
CPT/HCPCS: 27447; 94640 ×2; 97161; 64999; 64448; 85025; 73560; C1713 ×2; C1776; C1751; J2250; J1100; J0690 ×2; J3010; J1171 ×2; J2795; J2704; J2371; J1596